=== PATIENT | female | born 1985 | race Hispanic/Latino ===

== ENCOUNTER 2018-05-16 18:51 | Emergency (ER) | payer MEDICAID ==
[2018-05-16] MEDS ORDERED: DIPHENHYDRAMINE HCL 25 MG CAPSULE ONE (19:29)
[2018-05-16] MEDS ORDERED: IPRATROPIUM/ALBUTEROL SULFATE 3 ML SOLUTION IH ONE (19:42)
== END 2018-05-16 20:49 | disposition home or self-care (01) ==
LOC: EDH 18:51
DX: L50.0 Allergic urticaria (principal); J45.901 Unspecified asthma with (acute) exacerbation; F41.9 Anxiety disorder, unspecified; Z90.49 Acquired absence of other specified parts of digestive tract
CPT/HCPCS: 94640; 99283; Q0163

== ENCOUNTER 2018-11-11 19:00 | Emergency (ER) | payer MEDICAID ==
[2018-11-11] MEDS ORDERED: FAMOTIDINE 20MG TAB 20 MG TAB ONE (19:39)
[2018-11-11] MEDS ORDERED: ONDANSETRON ODT 4 MG TAB ONE (19:40)
[2018-11-11 19:44] LABS: APPEARANCE,URINE Clear (CLEAR); BILIRUBIN,URINE Negative (NEGATIVE); COLOR,URINE Dark Yellow (YELLOW); GLUCOSE, URINE (UA) Negative (NEGATIVE); KETONES,URINE Negative (NEGATIVE); LEUKOCYTE ESTERASE ,URINE Small (NEGATIVE); NITRATE,URINE Negative (NEGATIVE); OCCULT BLOOD,URINE Trace (NEGATIVE); PROTEIN,URINE Trace mg/dL (NEGATIVE)
[2018-11-11 19:54] LABS: HCG,QUAL RESULT NEGATIVE (NEGATIVE)
[2018-11-11] MEDS ORDERED: HYOSCYAMINE SULFATE 0.125 MG TAB.SUBL SL ONE (19:58)
[2018-11-11 20:06] LABS: BACTERIA,URINE Few /HPF (None Seen); MUCUS,URINE Few LPF (None Seen)
== END 2018-11-11 20:37 | disposition home or self-care (01) ==
LOC: EDH 19:00
DX: K52.9 Noninfective gastroenteritis and colitis, unspecified (principal); F41.9 Anxiety disorder, unspecified; J45.909 Unspecified asthma, uncomplicated; Z79.899 Other long term (current) drug therapy; Z98.890 Other specified postprocedural states
CPT/HCPCS: 81001; 81025

== ENCOUNTER 2019-03-06 12:30 | Emergency (ER) | payer MEDICAID ==
[2019-03-06 13:31] LABS: BASOPHILS % (AUTO) 1.1 % (0.0-5.0); EOSINOPHILS % (AUTO) 1.4 % (0.0-8.0); HEMATOCRIT 42.7 % (36-48); LYMPHOCYTES % (AUTO) 27.3 % (21.0-51.0); MEAN CORPUSCULAR HEMOGLOBIN 30.6 pg (27.0-33.0); MEAN CORPUSCULAR HGB CONC 34.2 g/dL (32.0-36.0); MEAN CORPUSCULAR VOLUME 89.2 fL (79-99); MONOCYTES % (AUTO) 4.6 % (3.0-13.0); NEUTROPHILS % (AUTO) 65.6 % (40.0-77.0); NUCLEATED RED BLOOD CELLS 0.1 % (0.0-0.19); PLATELET COUNT (AUTO) 286 K/uL (130-400); RED BLOOD CELL COUNT(AUTO) 4.79 MIL/uL (4.00-5.50); WHITE BLOOD COUNT (AUTO) 10.4 K/uL (4.8-10.8)
[2019-03-06 13:47] LABS: CREATININE 0.7 mg/dL (0.5-1.5); POTASSIUM 3.5 mmol/L (3.5-5.1)
[2019-03-06] MEDS ORDERED: MAG HYDROX/AL HYDROX/SIMETH ES 30 ML SUSP UDCUP ONE (14:05)
[2019-03-06] MEDS ORDERED: LIDOCAINE HCL 2% VISCOUS 15 ML UDCUP ONE (14:05)
== END 2019-03-06 14:48 | disposition home or self-care (01) ==
LOC: EDH 12:30
DX: R07.89 Other chest pain (principal); F41.9 Anxiety disorder, unspecified; I10 Essential (primary) hypertension; J45.909 Unspecified asthma, uncomplicated; Z98.890 Other specified postprocedural states
CPT/HCPCS: 36415; 71045; 80048; 81025; 84484; 85025; 93005

== ENCOUNTER 2024-02-17 23:15 | Inpatient (IN) | payer MEDICAID ==
[~2024-02-17] VITALS: Ht 149.9 cm; Wt 105.2 kg
[2024-02-18] VITALS (25 sets, daily range): BP systolic 103–148; BP diastolic 56–81; PULSE 78–106; RESP 12–21; TEMP 97.2–98.6; O2SAT 97
--- NOTE | 2024-02-18 00:55 | ERN ---
ED Note History of Present Illness Stated Complaint: C/O ABSCESS UNDER RT BREAST Chief Complaint: Abscess Time Seen by MD: 23:18 Time Seen by Midlevel: 23:18 Dictation: The patient is a 38-year-old year old female with a history of chronic bronchitis, asthma, cholecystectomy who presents to the emergency department with complaints of abscess to right lower breast. Patient reports she has a history of abscess to that area. Reports this episode started on Saturday. Denies fevers or chills. Patient reports she has been suffering from chronic bronchitis and is taking Levaquin she got from [place], prednisone. Allergies: Coded Allergies: No Known Drug Allergies (Unverified Allergy, Unknown, 11/11/18) Past Medical History Past Medical History: Anxiety, Asthma, Bronchitis Surgical History: None LMP: Feb 17, 2024 RN Note Reviewed/Agreed w/PFSH: Yes Review of System Dictation Constitutional: Negative for fever,chills, and weight loss Eyes: Negative for injury, pain,redness, and discharge ENT: Negative for injury,pain or swelling Cardiovascular: Negative for chest pain, palpitations, and edema Respiratory: Negative for shortness of breath, cough, and wheezing, Abdomen/GI: Negative for abdominal pain, nausea, vomiting, diarrhea, and constipation Back: Negative for injury and pain : Negative for injury, bleeding and discharge MS/Extremity: Negative for injury and deformity Skin: Negative for rash, and discoloration positive for erythema, induration of right lower breast Neuro: Negative for headache, weakness, numbness, tingling, and seizure Psych: Negative for suicide ideation, homicidal ideation, and hallucinations Initial Vital Sign VS Vital Signs Date Time Temp Pulse Resp B/P (MAP) Pulse Ox O2 Delivery O2 Flow Rate FiO2 02/17/24 23:17 99.5 108 20 162/114 96 Room Air Physical Exam Dictation Vital Signs reviewed General Appearance: Alert, oriented x 3, no acute distress, well developed, nourished. Head and Face: non-traumatic. Eyes: PERRL, pink conjunctivas, eyelid no trauma, anterior chamber with arcus senilis. Ears: Pinnas intact and no signs of trauma or erythema ear canals clear and no discharge TM no erythema Nose: No discharge, no bleeding. Oropharynx: Mouth normal, tongue pink. pharynx clear,no erythema, tonsils no exudates, no abscesses noted, mucous membrane moist Neck: Supple, non-tender, no thyromegaly, no masses, no JVD, no bruits Breast: Right breast at 5-6 o'clock with induration, erythema, warmth to touch Chest:No tenderness, no crepitus, no paradoxical movement, no retractions Lungs:Clear, well-ventilated, symmetric, no rales, no wheezing, no rhonchi, no stridor, good breath sounds bilaterally Heart: Regular rate, regular rhythm, no murmur, no gallops Vascular: no peripheral edema, Abdomen: Soft, positive bowel sounds, nondistended, no guarding, nontender, no rebound, no masses no hepatomegaly, no splenomegaly, no Milan's sign, no hernias. Rectal: Deferred Genital: Deferred Neurological: Normal speech, motor function intact, sensory function intact Musculoskeletal: Neck nontender, full range of motion, back nontender, full range of motion, Extremities: nontender, full range of motion Skin: Color pink, dry, no turgor, no rash, no lacerations, no abrasions, no contusions. Lymphatic: Deferred Results (Laboratory/Radiology) Laboratory/Radiology Laboratory Tests Test 02/18/24 00:58 White Blood Count 15.4 K/uL (4.8-10.8) H Red Blood Count 4.98 MIL/uL (4.00-5.50) Hemoglobin 14.4 g/dL (12.0-16.0) Hematocrit 43.3 % (36-48) Mean Corpuscular Volume 86.9 fL (79-99) Mean Corpuscular Hemoglobin 28.9 pg (27.0-33.0) Mean Corpuscular Hemoglobin Concent 33.3 g/dL (32.0-36.0) Red Cell Distribution Width 13.5 % (11.0-15.5) Platelet Count 303 K/uL (130-400) Mean Platelet Volume 9.5 fL (7.5-10.5) Immature Granulocyte % (Auto) 0.4 % (0-1) Neutrophils (%) (Auto) 80.9 % (40.0-77.0) H Lymphocytes (%) (Auto) 15.0 % (21.0-51.0) L Monocytes (%) (Auto) 2.5 % (3.0-13.0) L Eosinophils (%) (Auto) 1.0 % (0.0-8.0) Basophils (%) (Auto) 0.2 % (0.0-5.0) Neutrophils # (Auto) 12.5 K/uL (1.8-7.7) H Lymphocytes # (Auto) 2.3 K/uL (1.0-4.8) Monocytes # (Auto) 0.4 K/uL (0.1-1.0) Eosinophils # (Auto) 0.16 K/uL (0.00-0.70) Basophils # (Auto) 0.03 K/uL (0.00-0.20) Absolute Immature Granulocyte (auto 0.06 K/uL (0-1) Nucleated Red Blood Cells 0.0 % (0.0-0.19) Sodium Level 136 mmol/L (136-145) Potassium Level 4.1 mmol/L (3.5-5.1) Chloride Level 99 mmol/L (101-111) L Carbon Dioxide Level 26 mmol/L (21-32) Blood Urea Nitrogen 8 mg/dL (7-18) Creatinine 0.7 mg/dL (0.5-1.0) Glomerular Filtration Rate Calc 112 mL/min (>90) Random Glucose 195 mg/dL (70-105) H Total Calcium 10.1 mg/dL (8.5-10.1) Serum Test, Qualitative NEGATIVE (NEGATIVE) REASON: r/o abscess right breast ORDERING PHYSICIAN: CLYDE SANCHES SENIOR UI WEB DEVELOPER PROCEDURE: BREAST LTD - US BREAST LIMITED UNILATERAL US BREAST LIMITED UNILATERAL REASON: r/o abscess right breast. COMPARISON: None TECHNIQUE: Right breast ultrasound study was performed. FINDINGS: Hypoechoic area with peripheral flow is noted at 5-6 o'clock region of the right breast may be related to abscess measuring 3.7 x 1 x 5.2 cm. Adjacent cellulitis changes are seen. Follow-up examination is recommended to rule out a mass lesion. IMPRESSION: Findings as described above. Labs Reviewed?: Yes ED Course ED Course Orders Procedure Category Date Status Time Cbc With Differential LAB 02/17/24 Complete 23:43 Basic Metabolic Panel LAB 02/17/24 Complete 23:43 Us Breast Limited US 02/17/24 Resulted Unilateral 23:43 Testing, LAB 02/18/24 Complete Serum Hcg 01:41 Blood Cult MAE 02/18/24 Logged 02:19 Lactic Acid LAB 02/18/24 Logged 02:19 0.9%Nacl 1000ml (Ns PHA 02/18/24 In Process 1000ml) 02:30 Zosyn 3.375gm+Ns 50ml PHA 02/18/24 In Process (Zosyn 3.375gm+Ns 02:19 Vancomycin 1g/250ml PHA 02/18/24 In Process Kit (Vancomycin 1g/2 02:30 Current Medications Medications (Trade) Dose Ordered Sig/Peggy Route PRN Reason Start Time Stop Time Status Last Admin Dose Admin Piperacillin Sod/ Tazobactam Sod 50 ml @ 200 mls/hr STAT STAT IVPB 02/18/24 02:19 02/18/24 02:33 Sodium Chloride 3,156 ml @ 1,052 mls/hr ONCE ONCE IV 02/18/24 02:30 02/18/24 05:29 Vancomycin HCl 250 ml @ 125 mls/hr ONCE ONCE IV 02/18/24 02:30 02/18/24 04:29 Vital Signs Date Time Temp Pulse Resp B/P (MAP) Pulse Ox O2 Delivery O2 Flow Rate FiO2 02/17/24 23:17 99.5 108 20 162/114 96 Room Air Medical Decision Making MDM MDM: The patient is a 38-year-old year old female with a history of chronic bronchitis, asthma, cholecystectomy who presents to the emergency department with complaints of abscess to right lower breast. Patient reports she has a history of abscess to that area. Reports this episode started on Saturday. Denies fevers or chills. Patient reports she has been suffering from chronic bronchitis and is taking Levaquin she got from [place], prednisone. CBC showed mild leukocytosis, no anemia, chemistry showed mild hyperglycemia, normal renal function, breast ultrasound revealed a possible abscess, with cellulitis. Patient will be admitted for IV antibiotics and further management. Differential diagnosis: Abscess, cellulitis, sepsis, electrolyte imbalance Comorbidities: Bronchitis, asthma Tests considered and not ordered secondary to shared decision making include: none Previous outside records reviewed: none Risk of complication and/or morbidity or mortality of patient management: The patient meets criteria for admission. Need for emergency major/minor surgery: No There are no social concerns with this patient. I independently interpreted the tests I ordered (labs, urinalysis, etc.). I discussed the case with the hospitalist for admission. [place] who accepts adm ission I discussed the case with the following specialists: none. Historian: [email or web address]. I independently interpreted imaging studies and EKGs that I ordered (US, CT, XR, EKG, etc.). External chart review: none. Medical management and examination interpretation discussions were had by me with other qualified healthcare professionals as indicated for the patient's care. DX & DISP Disposition: Inpatient Decision to Admit Date: Feb 18, 2024 Decision to Admit Time: 02:55 Departure Impression: Primary Impression: Abscess of right breast Additional Impressions: Cellulitis of right breast, Leukocytosis Condition: Stable Referrals: ROSLYN RUSSLEL MD (PCP) I have reviewed the case, and I agree with, Diagnosis and Plan CLYDE SANCHES SENIOR UI WEB DEVELOPER Feb 18, 2024 00:55
[2024-02-18 01:05] LABS: BASOPHILS # (AUTO) 0.03 K/uL (0.00-0.20); BASOPHILS % (AUTO) 0.2 % (0.0-5.0); EOSINOPHILS # (AUTO) 0.16 K/uL (0.00-0.70); HEMATOCRIT 43.3 % (36-48); IMMATURE GRANULOCYTE ABSOLUTE 0.06 K/uL (0-1); LYMPHOCYTES # (AUTO) 2.3 K/uL (1.0-4.8); MEAN CORPUSCULAR HEMOGLOBIN 28.9 pg (27.0-33.0); MEAN CORPUSCULAR HGB CONC 33.3 g/dL (32.0-36.0); MEAN CORPUSCULAR VOLUME 86.9 fL (79-99); MONOCYTES # (AUTO) 0.4 K/uL (0.1-1.0); MONOCYTES % (AUTO) 2.5 % (3.0-13.0); NEUTROPHILS # (AUTO) 12.5 K/uL (1.8-7.7); NEUTROPHILS % (AUTO) 80.9 % (40.0-77.0); PLATELET COUNT (AUTO) 303 K/uL (130-400); RED BLOOD CELL COUNT(AUTO) 4.98 MIL/uL (4.00-5.50); RED CELL DISTRIBUTION WIDTH 13.5 % (11.0-15.5); WHITE BLOOD COUNT (AUTO) 15.4 K/uL (4.8-10.8)
[2024-02-18 01:12] LABS: CREATININE 0.7 mg/dL (0.5-1.0); POTASSIUM 4.1 mmol/L (3.5-5.1)
--- NOTE | 2024-02-18 01:50 | HMCIMG ---
US BREAST LIMITED UNILATERAL REASON: r/o abscess right breast. COMPARISON: None TECHNIQUE: Right breast ultrasound study was performed. FINDINGS: Hypoechoic area with peripheral flow is noted at 5-6 o'clock region of the right breast may be related to abscess measuring 3.7 x 1 x 5.2 cm. Adjacent cellulitis changes are seen. Follow-up examination is recommended to rule out a mass lesion. IMPRESSION: Findings as described above.
[2024-02-18] MEDS ORDERED: ZOSYN 3.375GM+NS 50ML 50 ML IVPB STA (02:19)
[2024-02-18] MEDS ORDERED: VANCOMYCIN 1G/250ML KIT 250 ML IV ONE (02:30)
[2024-02-18] MEDS ORDERED: ondanSETRON 4MG INJ IV PRN (03:00)
[2024-02-18] MEDS ORDERED: MAGNESIUM 2GM PREMIX 50ML 50 ML IV PRN (03:00)
[2024-02-18] MEDS ORDERED: PoTASSium chloRIDE 20MEQ/100ML 100 ML IV PRN (03:00)
[2024-02-18] MEDS ORDERED: PoTASSium chloRIDE 20MEQ ER 20 MEQ ERTAB PO PRN (03:00)
[2024-02-18] MEDS ORDERED: morPHINE 2 MG SYG IV PRN (03:00)
[2024-02-18] MEDS ORDERED: HYDROcodone/APAP 5/325 1 TAB TABLET PO PRN (03:00)
[2024-02-18] MEDS ORDERED: PoTASSium chl 10% ELIXIR 20MEQ 20 MEQ/15 ML UDCUP PO PRN (03:00)
[2024-02-18] MEDS ORDERED: acetaMINOPHEN 325 MG TAB PO PRN (03:00)
[2024-02-18] MEDS ORDERED: VANCOMYCIN PROTOCOL PER PHARMACY IV SCH (03:30)
[2024-02-18] MEDS: [UNRECOGNIZED DRUG - OTHER] IV ONE (03:45)
[2024-02-18] MEDS: ZOSYN 3.375GM+NS 50ML 50 ML IV SCH (03:46)
[2024-02-18] MEDS: ceFEPime HCL 1 GM VIAL IVPB SCH (04:03)
--- NOTE | 2024-02-18 04:23 | NUR ---
CEFEPIME STOPPED, PATIENT COMPLAINS OF ITCHING AND HIVES
[2024-02-18] MEDS: DiphenhydrAMINE HCL 50 MG/ML VIAL IV ONE (04:35)
[2024-02-18] MEDS: VANCOMYCIN 1G/250ML KIT 250 ML IV ONE (05:30)
--- NOTE | 2024-02-18 05:30 | NUR ---
REPORT GIVEN TO JOSHUA PATEL
--- NOTE | 2024-02-18 05:51 | HP ---
[facility] HISTORY AND PHYSICAL Date of Service: Feb 18, 2024 Time of Service: 05:19 PCP: SElf Referral HISTORY OF PRESENT ILLNESS: This is a 38 year old female with past medical history of morbid obesity ,Asthma and chronic bronchitis who presents to the eD for complaints of right lower breast tenderness and swelling last Saturday 3 days ago.Patient states that this is the 5th time it happened to her on same site.Patient states the previous 4 episodes of right breast cellulitis she had it popped and was draining and resolved and this is the 5th episode now and so far she said it has not popped and drained yet so she decided to come to the ED to have it drained surgically. Seen and examined patient in the ER awake,alert and coherent appears uncomfortable complaining of right breast pain 8/10 pain level.Patient denies fever ,chills and chest pain. Latest vital signs temperature 99.5, heart rate 108, BP 162/114 saturation 96% on room air. Labs: WBC 15.4 with negative left shift of neutrophils 80.9, hemoglobin 14.4 ,hematocrit 43.3, platelet count 303. Chloride 99, Glucose 195, the rest of the chemistry result is normal. Ultrasound of the right breast was done result is still pending at this time. While in the ER patient was started on cefepime per ER and patient developed rash and itching ,med was stopped and patient was given Benadryl 50 IV x1 vancomycin IV was started in the ER. Patient denies facial swelling respiratory symptoms & tongue swelling . We will admit patient for further medical management. REVIEW OF SYSTEMS CONSTITUTIONAL: Denies fevers, chills, or night sweats. No unintentional weight loss reported. NEUROLOGICAL: Denies headache, amaurosis fugax, motor weakness, sensory deficit, vertigo/spinning sensation, gait abnormalities, or tremors. ENT: No hearing loss, otalgia, otorrhea, rhinitis, rhinorrhea, hoarseness, or sore throat. CARDIOVASCULAR: Denies any exertional angina, dyspnea on exertion, orthopnea, paroxysmal nocturnal dyspnea, palpitations, life-threatening arrhythmias, claudication. PULMONARY: Denies any shortness of breath, cough, phlegm/sputum, hemoptysis, pleuritic chest pain. SLEEP: Denies morning headaches, daytime somnolence or napping. Denies difficulty falling asleep, staying asleep, waking from sleep. Denies knowledge of snoring. GASTROINTESTINAL: Denies any type of dysphagia to either liquids or solids. Denies nausea, vomiting, pyrosis, early satiety, abdominal pain, diarrhea, constipation, or changes in stool consistency or caliber. Denies coffee-ground emesis, hematemesis, hematochezia, or melanotic stools. GENITOURINARY: Denies frequency, urgency, nocturia, hematuria or incontinence (Storage/Irritative symptoms.) Low urinary stream, straining to void, urinary intermittency or hesitancy, splitting of the voiding stream, terminal dribbling. ENDOCRINOLOGIC: Denies polyuria, polydipsia, polyphagia or heat/cold intolerances. HEMATOLOGIC: Denies thrombophilia/previous clots, or coagulopathy/bleeding disorders. ONCOLOGIC: Denies personal history of malignancy. DERMATOLOGIC: Positive rash and itchiness after antibiotic was started PSYCHIATRIC: Denies any suicidal or homicidal ideation. Denies hallucinations. PAST MEDICAL HISTORY: [ Right breast cellulitis x4 episode Asthma, bronchitis and morbid obesity ] PAST SURGICAL HISTORY: [ Cholecystectomy, tonsillectomy, and x2 ] PAST SOCIAL HISTORY: [Patient lives with . Patient denies alcohol tobacco and recreational drug use] FAMILY HISTORY: [ Noncontributory ] Coded Allergies: cefepime (Unverified Allergy, Mild, HIVES, 02/18/24) Penicillins (Unverified Allergy, Unknown, 02/18/24) PHYSICAL EXAM GENERAL APPEARANCE: The patient is awake, alert, and oriented, in no acute cardiopulmonary distress. NEUROLOGICAL: Cranial nerves II-XII grossly intact. Motor is 5/5 in bilateral upper and lower extremities proximal to distal. No sensory deficits. HEENT: Face is symmetric. Pupils are equal and reactive. Extraocular movements are intact. NECK: Supple. No JVD. No thyromegaly. No submental, submandibular, pre- /postauricular, occipital or supraclavicular lymphadenopathy. CHEST: Normal chest expansion. No Telemetry. LUNGS: Absence of any rales, rhonchi or any wheezing. CARDIOVASCULAR: Regular. S1 and S2 normal. No appreciable rubs, murmurs or gallops. ABDOMEN: Soft, nontender, and nondistended. There is no rebound, voluntary guarding, or rigidity. : Deferred. No [place]. EXTREMITIES: Non-edematous and not cyanotic. No clubbing. Good capillary refill. SKIN: Positive induration of the right breast, tenderness positive redness Vital Sign (Last 24 Hours) 02/17/24 23:17 Temp 99.5 Pulse 108 Resp 20 B/P (MAP) 162/114 Pulse Ox 96 O2 Delivery Room Air LABS: Laboratory: Test 02/18/24 00:58 Range/Units White Blood Count 15.4 H 4.8-10.8 K/uL Red Blood Count 4.98 4.00-5.50 MIL/uL Hemoglobin 14.4 12.0-16.0 g/dL Hematocrit 43.3 36-48 % Mean Corpuscular Volume 86.9 79-99 fL Mean Corpuscular Hemoglobin 28.9 27.0-33.0 pg Mean Corpuscular Hemoglobin Concent 33.3 32.0-36.0 g/dL Red Cell Distribution Width 13.5 11.0-15.5 % Platelet Count 303 130-400 K/uL Mean Platelet Volume 9.5 7.5-10.5 fL Immature Granulocyte % (Auto) 0.4 0-1 % Neutrophils (%) (Auto) 80.9 H 40.0-77.0 % Lymphocytes (%) (Auto) 15.0 L 21.0-51.0 % Monocytes (%) (Auto) 2.5 L 3.0-13.0 % Eosinophils (%) (Auto) 1.0 0.0-8.0 % Basophils (%) (Auto) 0.2 0.0-5.0 % Neutrophils # (Auto) 12.5 H 1.8-7.7 K/uL Lymphocytes # (Auto) 2.3 1.0-4.8 K/uL Monocytes # (Auto) 0.4 0.1-1.0 K/uL Eosinophils # (Auto) 0.16 0.00-0.70 K/uL Basophils # (Auto) 0.03 0.00-0.20 K/uL Absolute Immature Granulocyte (auto 0.06 0-1 K/uL Nucleated Red Blood Cells 0.0 0.0-0.19 % Sodium Level 136 136-145 mmol/L Potassium Level 4.1 3.5-5.1 mmol/L Chloride Level 99 L 101-111 mmol/L Carbon Dioxide Level 26 21-32 mmol/L Blood Urea Nitrogen 8 7-18 mg/dL Creatinine 0.7 0.5-1.0 mg/dL Glomerular Filtration Rate Calc 112 >90 mL/min Random Glucose 195 H 70-105 mg/dL Total Calcium 10.1 8.5-10.1 mg/dL Serum Test, Qualitative NEGATIVE NEGATIVE Current Medications Medications (Trade) Dose Ordered Sig/Peggy Route PRN Reason Start Time Stop Time Status Last Admin Dose Admin Acetaminophen (TYLenol 325MG TAB) 650 mg Q4H PRN PO MILD PAIN (1-3) 02/18/24 03:00 03/19/24 02:59 Acetaminophen (TYLenol 325MG TAB) 650 mg Q6H PRN PO TEMPERATURE GREATER THAN 101.5 02/18/24 03:00 03/19/24 02:59 Acetaminophen/ Hydrocodone Bitart (NORco 5/325MG) 1 tab Q4H PRN PO MODERATE PAIN (4-6) 02/18/24 03:00 02/23/24 02:59 Cefepime HCl (MAXipime 1 GM vial) 1 gm ONCE IVPB 02/18/24 04:00 02/28/24 03:59 02/18/24 04:03 1 GM Famotidine (Pepcid 20mg Tab) 20 mg BID PO 02/18/24 09:00 03/19/24 08:59 Magnesium Sulfate 50 ml @ 0 mls/hr PROTOCOL PRN IV OTHER [SEE ORDER COMMENTS] 02/18/24 03:00 03/19/24 02:59 Morphine Sulfate (morPHINE 2MG SYG) 2 mg Q4H PRN IV MODERATE PAIN (7-10) 02/18/24 03:00 02/25/24 02:59 Ondansetron HCl (zoFRAN 4MG INJ) 4 mg Q6H PRN IV NAUSEA/VOMITING 02/18/24 03:00 03/19/24 02:59 Piperacillin Sod/ Tazobactam Sod 50 ml @ 12.5 mls/hr Q8H IV 02/18/24 03:00 02/18/24 04:22 DC Piperacillin Sod/ Tazobactam Sod 50 ml @ 200 mls/hr STAT STAT IVPB 02/18/24 02:19 02/18/24 03:07 DC Potassium Chloride 100 ml @ 100 mls/hr AD PRN IV POTASSIUM PROTOCOL 02/18/24 03:00 03/19/24 02:59 Potassium Chloride (K-Dur/Klor-Con 20meq) 20 meq AD PRN PO POTASSIUM PROTOCOL 02/18/24 03:00 03/19/24 02:59 Potassium Chloride (KCl 10% Elixir 20meq/15ml) 20 meq AD PRN PO POTASSIUM PROTOCOL 02/18/24 03:00 03/19/24 02:59 Vancomycin HCl 250 ml @ 125 mls/hr Q12H IV 02/18/24 15:00 02/28/24 14:59 Vancomycin HCl (Vancomycin Protocol) 1 each AD IV 02/18/24 03:30 03/03/24 03:29 DIAGNOSTICS / RADIOLOGY: [ ] ASSESSMENT: Recurrent right breast cellulitis process POA Sirs were organ dysfunction POA Morbid obesity POA Hyperglycemia POA Allergic reaction POA PLAN: We will admit patient in medical surgical floor We will start with consistent carb diet We will start NS @ 75 ml / hrx1 and re evaluate We will start patient on vancomycin and Levaquin IV for broad-spectrum coverage We will start on Famotidine 20 mg p.o. bid for GI prophylaxis We will replace electrolytes as needed per protocol We will follow-up right breast ultrasound result We will add prn medication for fever,pain,nausea and vomiting We will seek Infectious Disease consultation We will seek general surgeon consultation We will reconcile home meds once medlist available We will request labs in am Further orders to follow depending on above results Case discussed with attending physician and came up with above treatment and plan of care. ADVANCED CARE PLANNING 1. Which of the following were discussed? Hospice Care - No Therapeutic options - Yes Advance Directives - No Other discussions - 2. Discussed with who? Patient 3. Voluntary nature of this service was explained to the patient? Yes 4. Amount of time spent - __19 5. Reviewed by Physician? (if this service was performed by NPP) Yes Patient seen and examined by me. Agree with note by KITCHEN CLERK SEE ADDITIONAL ORDERS PER CHART DISCUSSED WITH NURSING STAFF RASHEED VILLANUEVA CERTIFIED EXECUTIVE CHEF Feb 18, 2024 05:51
[2024-02-18] MEDS: DiphenhydrAMINE HCL 50 MG/ML VIAL ONE (05:53)
[2024-02-18] MEDS: levoFLOXacin 750 MG/D5W 150ML BAG IV SCH (06:00)
--- NOTE | 2024-02-18 06:33 | NUR ---
PATIENT MOVED TO ROOM 18 AT 5.30
[2024-02-18] MEDS: levoFLOXacin 250 MG/D5W 50ML 50 ML ONE (06:48)
[2024-02-18] MEDS: levoFLOXacin 500 MG/D5W 100 ML 100 ML ONE (06:49)
[2024-02-18 07:08] LABS: BASOPHILS # (AUTO) 0.03 K/uL (0.00-0.20); BASOPHILS % (AUTO) 0.2 % (0.0-5.0); EOSINOPHILS # (AUTO) 0.11 K/uL (0.00-0.70); EOSINOPHILS % (AUTO) 0.9 % (0.0-8.0); HEMATOCRIT 40.8 % (36-48); IMMATURE GRANULOCYTE ABSOLUTE 0.05 K/uL (0-1); LYMPHOCYTES # (AUTO) 2.7 K/uL (1.0-4.8); LYMPHOCYTES % (AUTO) 21.7 % (21.0-51.0); MEAN CORPUSCULAR HEMOGLOBIN 29.5 pg (27.0-33.0); MEAN CORPUSCULAR HGB CONC 33.6 g/dL (32.0-36.0); MEAN CORPUSCULAR VOLUME 87.9 fL (79-99); MONOCYTES # (AUTO) 0.4 K/uL (0.1-1.0); MONOCYTES % (AUTO) 3.1 % (3.0-13.0); NEUTROPHILS # (AUTO) 9.2 K/uL (1.8-7.7); NEUTROPHILS % (AUTO) 73.7 % (40.0-77.0); PLATELET COUNT (AUTO) 276 K/uL (130-400); RED BLOOD CELL COUNT(AUTO) 4.64 MIL/uL (4.00-5.50); RED CELL DISTRIBUTION WIDTH 13.4 % (11.0-15.5); WHITE BLOOD COUNT (AUTO) 12.4 K/uL (4.8-10.8)
[2024-02-18 07:18] LABS: HEMOGLOBIN A1C 9.5 % (4.0-6.0)
[2024-02-18 07:19] LABS: INR 1.06 (0.85-1.15); PROTHROMBIN TIME 11.4 SEC (9.6-11.6)
[2024-02-18 07:23] LABS: ALBUMIN 3.3 g/dL (3.5-5.0); BILIRUBIN,TOTAL 0.4 mg/dL (0.2-1.0); CREATININE 0.5 mg/dL (0.5-1.0); MAGNESIUM 1.7 mg/dL (1.80-2.40); POTASSIUM 3.7 mmol/L (3.5-5.1); TOTAL PROTEIN, SERUM 7.7 g/dL (6.0-8.3)
--- NOTE | 2024-02-18 07:39 | NUR ---
NOTE ACUTE PHLEBITIS TO LEFT LOWER ARM. VERBAL ORDER BY DR PHOENIX FOR 60MG SOLUMEDROL IVP. PATIENT STATES HAS RECEIVED LEVAQUIN IN THE PAST PO AND IVPB. DENIES ITHING OR SOB. PER DR PHOENIX TO GIVE NEXT DOSE SLOWER.
[2024-02-18] MEDS: Solu-medROL 40MG VIAL IVP ONE (07:44)
[2024-02-18] MEDS: Solu-medROL 40MG VIAL ONE (07:44)
[2024-02-18 08:22] LABS: ERYTHROCYTE SEDIMENTATION RATE 39 MM/HR (0-20)
--- NOTE | 2024-02-18 08:48 | HMCIMG ---
CT CHEST W/O CONTRAST HISTORY: Abscess COMPARISON: 10/12/2008 TECHNIQUE: Multiple sequential axial images of the chest were obtained from the thoracic inlet through upper abdomen. Patient was not given contrast through intravenous route. FINDINGS: There is no evidence of pulmonary nodule or parenchymal disease. No pleural effusion or pericardial effusion is seen. There is no evidence of pneumothorax. There are normal size mediastinal and hilar lymph nodes. The heart is not enlarged. Degenerative changes of the thoracolumbar spine are present. There is no evidence of adrenal nodule. Liver is enlarged measuring 19 cm with fatty changes. There is focal skin thickening noted at the inferior aspect of the right breast measuring 18.8 mm in thickness. There may be small complex superficial subcutaneous abscess measuring 3.6 x 1.8 cm. IMPRESSION: 1. No evidence of pulmonary nodule or effusion is seen. There is focal skin thickening noted at the inferior aspect of the right breast measuring 18.8 mm in thickness. There may be small complex superficial subcutaneous abscess measuring 3.[address] was performed with one or more following dose reduction techniques: automated exposure control, adjustment of the mA and kv according to patient's size, or use of a iterative reconstruction technique.
[2024-02-18] MEDS: FAMOTIDINE 20MG TAB PO SCH (09:00)
--- NOTE | 2024-02-18 09:27 | NUR ---
ADMITTING -DR BUTLER INFORMED OF ACUTE PHLEBITIS REACTION.AGRESS TO GIVE NEXT DOSE SLOWLY AND MONITOR,.
--- NOTE | 2024-02-18 09:27 | NUR ---
DR SERRANO INFORMED OF CT RESULTS
--- NOTE | 2024-02-18 10:04 | NUR ---
TO OR AT THIS TIME. SCRATCH BRUSHER AWARE. PT LIKELY TO RETURN TO ER,.
[2024-02-18] MEDS ORDERED: rocuRONium bROMide 10MG/1ML 5ML VL ONE (10:22)
[2024-02-18] MEDS ORDERED: proPOFol 10 MG/ML 20ML VIAL IV ONE (10:22)
[2024-02-18] MEDS ORDERED: MIDAZOLAM HCL 1 MG/ML 2ML VIAL ONE (10:22)
[2024-02-18] MEDS ORDERED: FENTanyl CITRate PF 50 MCG/1 ML 2ML VIAL ONE (10:22)
[2024-02-18] MEDS ORDERED: ondanSETRON 4MG INJ ONE (10:22)
[2024-02-18] MEDS: 0.9%NACL 1000ML 1,000 ML IV ONE (10:29)
--- NOTE | 2024-02-18 10:44 | NUR ---
PT TO GO TO ROOM 110 S/P SURGERY. PATIENT REPORT GIVEN TO NURSE WALTON
[2024-02-18] MEDS ORDERED: NEOSTIGMINE METHYLSULFATE 1MG/ML IV ONE (11:18)
[2024-02-18] MEDS ORDERED: GLYCOPYRROLATE 0.2 MG/ML 5 ML VIAL ONE (11:18)
[2024-02-18] MEDS: IpraTROPium/alBUTERol SULFATE 3 ML SOLUTION IH ONE (11:42)
[2024-02-18] MEDS: MEPERIDINE-PF 25 MG/ML SYG ONE ×2 (11:46→11:56)
--- NOTE | 2024-02-18 11:51 | CONS ---
GENERAL SURGERY CONSULTATION NOTE Date/Time Patient Seen: 02/18/2024 10:00 a.m. Requesting Physician: ER Reason for Consultation: Right breast abscess History of Present Illness: This is a 38-year-old female who presents with a history of a recurrent right breast abscess x4. She denies fevers or chills. She has had drainage of the past. She has been seen at [facility] several times for this problem. She has complaints of right breast pain. She has never had a mammogram before. Her hemoglobin A1c is elevated at 9.5 and she has elevated blood sugars. This is concerning for undiagnosed diabetes. Past Medical History: Asthma, anxiety, bronchitis, morbid obesity Past Surgical History: Cholecystectomy and tonsillectomy Family History: Noncontributory Social History: Negative for smoking and illicit drug use Current Medications Medications (Trade) Dose Ordered Sig/Peggy Route Start Time Stop Time Status Last Admin Dose Admin Cefepime HCl (MAXipime 1 GM vial) 1 gm ONCE IVPB 02/18/24 04:00 02/18/24 08:16 DC 02/18/24 04:03 1 GM Famotidine (Pepcid 20mg Tab) 20 mg BID PO 02/18/24 09:00 03/19/24 08:59 Levofloxacin/ Dextrose (LEvaquIN 750 MG/ D5W 150 ML) 750 mg Q24H IV 02/18/24 06:00 02/28/24 05:59 Piperacillin Sod/ Tazobactam Sod 50 ml @ 12.5 mls/hr Q8H IV 02/18/24 03:00 02/18/24 04:22 DC Piperacillin Sod/ Tazobactam Sod 50 ml @ 200 mls/hr STAT STAT IVPB 02/18/24 02:19 02/18/24 03:07 DC Vancomycin HCl 250 ml @ 125 mls/hr Q12H IV 02/18/24 15:00 02/28/24 14:59 Vancomycin HCl (Vancomycin Protocol) 1 each AD IV 02/18/24 03:30 03/03/24 03:29 Review of Systems: CONST: [No fever, fatigue, or weight changes.] EYES: [No recent vision problems.] ENT: [No congestion, ear pain, or sore throat.] C/V: [No chest pain, palpitations, or edema.] RESP: [No cough, congestion, wheezing or shortness of breath.] GI: [No abdominal pain, nausea, vomiting, constipation, or diarrhea.] : [No incontinence or dysuria.] SKIN: Right breast abscess NEURO: [No headache, focal numbness or weakness, dizziness, or seizures.] PSYCH: [History of anxiety.] HEME: [No abnormal bruising or bleeding.] LYMPH: [No swollen glands.] Physical Examination: GENERAL: [No acute distress.] HEAD: [Normal with no signs of head trauma.] EYES: [PERRLA, EOMI, conjunctiva and sclera normal.] ENT: [Hearing grossly intact, normal oropharynx.] NECK: [Supple without JVD. There is no tenderness, lymphadenopathy, or masses. No thyromegaly. Normal carotid upstrokes without bruits.] LUNGS: [Clear breath sounds bilaterally. There are right basilar rales one third of the way up the chest. No wheezes, or rhonchi.] HEART: [Normal rate and rhythm. Normal S1 and S2 without mumurs, gallop or rub.] VASC: [Peripheral pulses +2 bilaterally.] ABD: [Bowel sounds normal, soft, nontender, no masses, no organomegaly. No audible bruits.] : [Not examined] LYMPH: [No lymphadenopathy noted.] EXT: [No clubbing, cyanosis or edema.] SKIN: Right breast with area of erythema that is tender to palpation. An area of fluctuance is palpated. NEURO: [Awake, alert, and oriented x3. No focal sensory or strength deficits noted.] Vital Signs (last 8hr) Date Time Temp Pulse Resp B/P (MAP) Pulse Ox O2 Delivery O2 Flow Rate FiO2 02/18/24 11:42 89 20 02/18/24 10:33 97.5 78 16 135/69 97 Room Air 21 02/18/24 07:41 98.4 110 14 153/102 97 Room Air* 0 21 02/18/24 06:00 98.8 75 18 142/93 98 Room Air* 0 21 Laboratory: [ ] Hematology Labs: Test 02/18/24 06:48 Range/Units White Blood Count 12.4 H 4.8-10.8 K/uL Red Blood Count 4.64 4.00-5.50 MIL/uL Hemoglobin 13.7 12.0-16.0 g/dL Hematocrit 40.8 36-48 % Mean Corpuscular Volume 87.9 79-99 fL Mean Corpuscular Hemoglobin 29.5 27.0-33.0 pg Mean Corpuscular Hemoglobin Concent 33.6 32.0-36.0 g/dL Red Cell Distribution Width 13.4 11.0-15.5 % Platelet Count 276 130-400 K/uL Mean Platelet Volume 9.5 7.5-10.5 fL Immature Granulocyte % (Auto) 0.4 0-1 % Neutrophils (%) (Auto) 73.7 40.0-77.0 % Lymphocytes (%) (Auto) 21.7 21.0-51.0 % Monocytes (%) (Auto) 3.1 3.0-13.0 % Eosinophils (%) (Auto) 0.9 0.0-8.0 % Basophils (%) (Auto) 0.2 0.0-5.0 % Neutrophils # (Auto) 9.2 H 1.8-7.7 K/uL Lymphocytes # (Auto) 2.7 1.0-4.8 K/uL Monocytes # (Auto) 0.4 0.1-1.0 K/uL Eosinophils # (Auto) 0.11 0.00-0.70 K/uL Basophils # (Auto) 0.03 0.00-0.20 K/uL Absolute Immature Granulocyte (auto 0.05 0-1 K/uL Nucleated Red Blood Cells 0.0 0.0-0.19 % Erythrocyte Sedimentation Rate 39 H 0-20 MM/HR Chemistry Labs: Test 02/18/24 06:48 02/18/24 02:56 02/18/24 00:58 Range/Units Sodium Level 139 136-145 mmol/L Potassium Level 3.7 3.5-5.1 mmol/L Chloride Level 103 101-111 mmol/L Carbon Dioxide Level 25 21-32 mmol/L Blood Urea Nitrogen 6 L 7-18 mg/dL Creatinine 0.5 0.5-1.0 mg/dL Glomerular Filtration Rate Calc 122 >90 mL/min Random Glucose 191 H 70-105 mg/dL Lactic Acid Level 2.0 0.8-2.5 mmol/L Total Calcium 9.1 8.5-10.1 mg/dL Magnesium Level 1.70 L 1.80-2.40 mg/dL Total Bilirubin 0.4 0.2-1.0 mg/dL Aspartate Amino Transf (AST/SGOT) 12 10-37 U/L Alanine Aminotransferase (ALT/SGPT) 23 12-78 U/L Alkaline Phosphatase 78 50-136 U/L Total Protein 7.7 6.0-8.3 g/dL Albumin 3.3 L 3.5-5.0 g/dL Hemoglobin A1c 9.5 H 4.0-6.0 % Estimated Average Glucose (eAG) 226 H 70-126 mg/dL Serum Test, Qualitative NEGATIVE NEGATIVE Coagulation Labs: Test 02/18/24 06:48 Range/Units Prothrombin Time 11.4 9.6-11.6 SEC Prothromb Time International Ratio 1.06 0.85-1.15 Activated Partial Thromboplast Time 29.0 26.3-35.5 SEC Diagnostics / Radiology: CT scan of the chest confirms presence of inflammatory changes in abscess in the right breast Assessment: 38-year-old female with of right breast abscess Plan: We will take to OR this morning for an incision and drainage of right breast abscess Agree with antibiotics STEVEN SERRANO MD Feb 18, 2024 11:51
--- NOTE | 2024-02-18 11:54 | OP ---
Operative Note: DATE OF PROCEDURE: 02/18/24 SURGEON: STEVEN SERRANO MD RN [place] [facility] [place]ESTHESIA: General PREOPERATIVE DIAGNOSIS: Right breast abscess POSTOPERATIVE DIAGNOSIS: Right breast abscess Findings: Right breast abscess PROCEDURE: Incision and drainage of right breast abscess ESTIMATED BLOOD LOSS: 30 mL INDICATIONS: 38 Year old female presents with a right breast abscess confirmed on imaging studies. DESCRIPTION OF PROCEDURE: Patient was taken to the operating room placed on the operating table in supine position. Next general anesthesia was induced and the patient was intubated. Her right breast was prepped and draped in a sterile fashion. A time-out was called and the patient's identity, procedure and preoperative antibiotics were confirmed. I made a small incision in the lower inner quadrant of the right breast overlying the area of fluctuance where I thought the abscess was located. I immediately encountered good amount of pus. This was cultured and sent off for cultures and sensitivities. Afterwards I palpated the abscess cavity and broke up any loculations. I irrigated the cavity a large amount of normal saline. I then made seven counter incisions in [place] in the abscess cavity. I threaded vessel loops through these incisions. These vessel loops were tied down. The central opening was packed with iodoform packing tape. Sterile dressings were applied. The anesthesia was reversed. And the patient was taken to the recovery room in stable condition. STEVEN Hernandez MD Feb 18, 2024 11:54
--- NOTE | 2024-02-18 12:25 | NUR ---
received pt from PACU via her bed, report received from Pavithra Hill RN Addendum: 02/18/24 at 1638 by PETER HERNADEZ RN Amended: Links added.
--- NOTE | 2024-02-18 15:02 | NUR ---
pt seen by Dr. Zhao, informed on plan of care, continue with antibiotics and wait for blood culture results, no questions asked by pt. Addendum: 02/18/24 at 1636 by PETER HERNADEZ RN Amended: Links added.
--- NOTE | 2024-02-18 15:35 | NUR ---
pt ambulating in the hallway with steady gait, accompanied by spouse and daughter Addendum: 02/18/24 at 1639 by PETER HERNADEZ RN Amended: Links added.
--- NOTE | 2024-02-18 15:39 | NUR ---
DCP: HOME Pt states she lives with her parents and 2 of her 3 kids. Pt states she lost her Medicaid and re applied at [facility], and is still waiting for determination. CHELE educated on [facility] for status on case, pt wants a personal visit not call. Pt gets food stamp assistance. Pt states she is independent of all her ALDS, uses no DME or in home care services. PCP is Ronni Echols and uses [facility] for rx. DCP is home. Chele notified [facility] that pt is requesting a visit and assistance with Medicaid mahesh. Addendum: 02/18/24 at 1539 by HUY BLOUNT Amended: Links added.
[2024-02-18] MEDS: VANCOMYCIN 1.5 GM/250 ML BAG 250 ML IV SCH (15:42)
--- NOTE | 2024-02-18 15:56 | PN ---
DATE OF SERVICE: 02/18/2024. INFECTIOUS DISEASE FOLLOWUP NOTE SUBJECTIVE: The patient is seen and examined at bedside today. The patient has had no fever, no chills. No nausea or vomiting. No cough, no shortness of breath, no palpitation or orthopnea. The patient underwent surgery today with incisional drainage of the right breast abscess. The patient is tolerating antibiotic. PHYSICAL EXAMINATION: VITAL SIGNS: Temperature 98.7. EYES: No icterus. Pupils equal and reactive. HENT: No oral thrush seen. Moist oral mucosa. NECK: Supple, no JVD or thyromegaly. LUNGS: Good air entry. No rales, no rhonchi. CARDIOVASCULAR: S1, S2 regular. No murmur heard. ABDOMEN: Obese, soft, and nontender. Bowel sounds present. CENTRAL NERVOUS SYSTEM: Awake, alert, and oriented x 3. No focal deficits. SKIN: No rashes, no itchiness. LYMPHATIC: No peripheral lymphadenopathy. BACK: No deformity, no pressure ulcer. ASSESSMENT: A 38-year-old female presenting with right breast pain, swelling and redness. CURRENT PROBLEMS: Include: * Right breast abscess, status post incision and drainage. * Morbid obesity. * Leukocytosis. PLAN: * Continue vancomycin. * Continue wound care. * Continue pain management. * Continue nutritional support. * Monitor electrolytes. * Follow up closely. TID: [id number] RECEIPT: [id number]
--- NOTE | 2024-02-18 16:32 | NUR ---
pt seen by Clare Hill NP, informed on plan of care, no questions asked by pt. Addendum: 02/18/24 at 1640 by PETER HERNADEZ RN Amended: Links added.
[2024-02-19] VITALS (7 sets, daily range): BP systolic 104–142; BP diastolic 68–81; PULSE 84–93; RESP 18–20; TEMP 97.9–98.7; O2SAT 96–98
[2024-02-19] MEDS: acetaMINOPHEN 325 MG TAB PO PRN (03:19)
[2024-02-19 07:27] LABS: MEAN CORPUSCULAR HEMOGLOBIN 29.1 pg (27.0-33.0); MEAN CORPUSCULAR HGB CONC 32.6 g/dL (32.0-36.0); MEAN CORPUSCULAR VOLUME 89.4 fL (79-99); RED BLOOD CELL COUNT(AUTO) 4.36 MIL/uL (4.00-5.50); RED CELL DISTRIBUTION WIDTH 13.5 % (11.0-15.5); WHITE BLOOD COUNT (AUTO) 12.1 K/uL (4.8-10.8)
[2024-02-19] MEDS ORDERED: ALPRAZolam 0.5 MG TABLET PO PRN (07:30)
[2024-02-19] MEDS ORDERED: ketOROlac 15MG/ML VIAL (15MG/ML) IV PRN (07:30)
[2024-02-19 07:31] LABS: CREATININE 0.6 mg/dL (0.5-1.0); POTASSIUM 3.3 mmol/L (3.5-5.1)
--- NOTE | 2024-02-19 08:58 | PN ---
[facility] PROGRESS NOTE Date of Service: Feb 19, 2024 Time of Service: 08:48 SUBJECTIVE: [38-year-old female admitted due to right breast abscess, status post I&D by Dr. Whelan. Cultures pending for ID and sensitivity, preliminary remarkable for Gram-positive cocci and Gram-negative rods. We will continue current IV antibiotics. Infectious Disease board, patient is currently on Levaquin IV. Patient was evaluated in the room 110, patient is very anxious. Stated that she was not able to sleep well last night because people are in and out in the door has been opening and closing. We will add alprazolam 0.5 mg p.o. as needed for anxiety. Patient also was anxious about having the allergic reaction due to cefepime and Rocephin. ] REVIEW OF SYSTEMS CONSTITUTIONAL: Denies fevers, chills, or night sweats. No unintentional weight loss reported. NEUROLOGICAL: Denies headache, amaurosis fugax, motor weakness, sensory deficit, vertigo/spinning sensation, gait abnormalities, or tremors. ENT: No hearing loss, otalgia, otorrhea, rhinitis, rhinorrhea, hoarseness, or sore throat. CARDIOVASCULAR: Denies any exertional angina, dyspnea on exertion, orthopnea, p aroxysmal nocturnal dyspnea, palpitations, life-threatening arrhythmias, claudication. PULMONARY: Denies any shortness of breath, cough, phlegm/sputum, hemoptysis, pleuritic chest pain. SLEEP: Denies morning headaches, daytime somnolence or napping. Denies difficulty falling asleep, staying asleep, waking from sleep. Denies knowledge of snoring. GASTROINTESTINAL: Denies any type of dysphagia to either liquids or solids. Denies nausea, vomiting, pyrosis, early satiety, abdominal pain, diarrhea, constipation, or changes in stool consistency or caliber. Denies coffee-ground emesis, hematemesis, hematochezia, or melanotic stools. GENITOURINARY: Denies frequency, urgency, nocturia, hematuria or incontinence (Storage/Irritative symptoms.) Low urinary stream, straining to void, urinary intermittency or hesitancy, splitting of the voiding stream, terminal dribbling. ENDOCRINOLOGIC: Denies polyuria, polydipsia, polyphagia or heat/cold intolerances. HEMATOLOGIC: Denies thrombophilia/previous clots, or coagulopathy/bleeding disorders. ONCOLOGIC: Denies personal history of malignancy. DERMATOLOGIC: Positive rash and itchiness after antibiotic was started PSYCHIATRIC: Denies any suicidal or homicidal ideation. Denies hallucinations. PHYSICAL EXAM GENERAL APPEARANCE: The patient is awake, alert, and oriented, in no acute cardiopulmonary distress. NEUROLOGICAL: Cranial nerves II-XII grossly intact. Motor is 5/5 in bilateral upper and lower extremities proximal to distal. No sensory deficits. HEENT: Face is symmetric. Pupils are equal and reactive. Extraocular movements are intact. NECK: Supple. No JVD. No thyromegaly. No submental, submandibular, pre- /postauricular, occipital or supraclavicular lymphadenopathy. CHEST: Normal chest expansion. No Telemetry. LUNGS: Absence of any rales, rhonchi or any wheezing. CARDIOVASCULAR: Regular. S1 and S2 normal. No appreciable rubs, murmurs or gallops. ABDOMEN: Soft, nontender, and nondistended. There is no rebound, voluntary guarding, or rigidity. : Deferred. No [place]. EXTREMITIES: Non-edematous and not cyanotic. No clubbing. Good capillary refill. SKIN: Positive induration of the right breast, tenderness positive redness Vital Signs (last 8hr) Date Time Temp Pulse Resp B/P (MAP) Pulse Ox O2 Delivery O2 Flow Rate FiO2 02/19/24 08:00 98.2 85 19 104/68 96 Room Air 0.0 02/19/24 03:34 98.1 93 20 128/78 97 Room Air LABS: Laboratory: Test 02/19/24 06:43 02/18/24 06:48 02/18/24 02:56 02/18/24 00:58 Range/Units White Blood Count 12.1 H 4.8-10.8 K/uL Red Blood Count 4.36 4.00-5.50 MIL/uL Hemoglobin 12.7 12.0-16.0 g/dL Hematocrit 39.0 36-48 % Mean Corpuscular Volume 89.4 79-99 fL Mean Corpuscular Hemoglobin 29.1 27.0-33.0 pg Mean Corpuscular Hemoglobin Concent 32.6 32.0-36.0 g/dL Red Cell Distribution Width 13.5 11.0-15.5 % Platelet Count 275 130-400 K/uL Mean Platelet Volume 9.6 7.5-10.5 fL Nucleated Red Blood Cells 0.0 0.0-0.19 % Sodium Level 138 136-145 mmol/L Potassium Level 3.3 L 3.5-5.1 mmol/L Chloride Level 103 101-111 mmol/L Carbon Dioxide Level 26 21-32 mmol/L Blood Urea Nitrogen 9 7-18 mg/dL Creatinine 0.6 0.5-1.0 mg/dL Glomerular Filtration Rate Calc 116 >90 mL/min Random Glucose 201 H 70-105 mg/dL Total Calcium 8.9 8.5-10.1 mg/dL Immature Granulocyte % (Auto) 0.4 0-1 % Neutrophils (%) (Auto) 73.7 40.0-77.0 % Lymphocytes (%) (Auto) 21.7 21.0-51.0 % Monocytes (%) (Auto) 3.1 3.0-13.0 % Eosinophils (%) (Auto) 0.9 0.0-8.0 % Basophils (%) (Auto) 0.2 0.0-5.0 % Neutrophils # (Auto) 9.2 H 1.8-7.7 K/uL Lymphocytes # (Auto) 2.7 1.0-4.8 K/uL Monocytes # (Auto) 0.4 0.1-1.0 K/uL Eosinophils # (Auto) 0.11 0.00-0.70 K/uL Basophils # (Auto) 0.03 0.00-0.20 K/uL Absolute Immature Granulocyte (auto 0.05 0-1 K/uL Erythrocyte Sedimentation Rate 39 H 0-20 MM/HR Prothrombin Time 11.4 9.6-11.6 SEC Prothromb Time International Ratio 1.06 0.85-1.15 Activated Partial Thromboplast Time 29.0 26.3-35.5 SEC Lactic Acid Level 2.0 0.8-2.5 mmol/L Magnesium Level 1.70 L 1.80-2.40 mg/dL Total Bilirubin 0.4 0.2-1.0 mg/dL Aspartate Amino Transf (AST/SGOT) 12 10-37 U/L Alanine Aminotransferase (ALT/SGPT) 23 12-78 U/L Alkaline Phosphatase 78 50-136 U/L Total Protein 7.7 6.0-8.3 g/dL Albumin 3.3 L 3.5-5.0 g/dL Hemoglobin A1c 9.5 H 4.0-6.0 % Estimated Average Glucose (eAG) 226 H 70-126 mg/dL Serum Test, Qualitative NEGATIVE NEGATIVE Current Medications Medications (Trade) Dose Ordered Sig/Peggy Route PRN Reason Start Time Stop Time Status Last Admin Dose Admin Acetaminophen (TYLenol 325MG TAB) 650 mg Q4H PRN PO MILD PAIN (1-3) 02/18/24 03:00 03/19/24 02:59 Acetaminophen (TYLenol 325MG TAB) 650 mg Q6H PRN PO TEMPERATURE GREATER THAN 101.5 02/18/24 03:00 03/19/24 02:59 02/19/24 03:19 650 MG Acetaminophen/ Hydrocodone Bitart (NORco 5/325MG) 1 tab Q4H PRN PO MODERATE PAIN (4-6) 02/18/24 03:00 02/19/24 07:18 DC Alprazolam (XANax 0.5MG) 0.5 mg TID PRN PO ANXIETY/AGITATION 02/19/24 07:30 03/20/24 07:29 Cefepime HCl (MAXipime 1 GM vial) 1 gm ONCE IVPB 02/18/24 04:00 02/18/24 08:16 DC 02/18/24 04:03 1 GM Diphenhydramine HCl (BENAdryl INJ) 25 mg Q6H PRN IV ITCHING 02/19/24 07:30 03/20/24 07:29 Famotidine (Pepcid 20mg Tab) 20 mg BID PO 02/18/24 09:00 03/19/24 08:59 02/18/24 20:26 20 MG Ketorolac Tromethamine (toRADol) 15 mg Q6H PRN IV MODERATE PAIN (4-6) 02/19/24 07:30 02/24/24 07:29 Levofloxacin/ Dextrose (LEvaquIN 750 MG/ D5W 150 ML) 750 mg Q24H IV 02/18/24 06:00 02/28/24 05:59 02/19/24 05:32 750 MG Magnesium Sulfate 50 ml @ 0 mls/hr PROTOCOL PRN IV OTHER [SEE ORDER COMMENTS] 02/18/24 03:00 03/19/24 02:59 Morphine Sulfate (morPHINE 2MG SYG) 2 mg Q4H PRN IV SEVERE PAIN (7-10) 02/18/24 03:00 02/25/24 02:59 Ondansetron HCl (zoFRAN 4MG INJ) 4 mg Q6H PRN IV NAUSEA/VOMITING 02/18/24 03:00 03/19/24 02:59 Piperacillin Sod/ Tazobactam Sod 50 ml @ 12.5 mls/hr Q8H IV 02/18/24 03:00 02/18/24 04:22 DC Piperacillin Sod/ Tazobactam Sod 50 ml @ 200 mls/hr STAT STAT IVPB 02/18/24 02:19 02/18/24 03:07 DC Potassium Chloride 100 ml @ 100 mls/hr AD PRN IV POTASSIUM PROTOCOL 02/18/24 03:00 03/19/24 02:59 Potassium Chloride (K-Dur/Klor-Con 20meq) 20 meq AD PRN PO POTASSIUM PROTOCOL 02/18/24 03:00 03/19/24 02:59 Potassium Chloride (KCl 10% Elixir 20meq/15ml) 20 meq AD PRN PO POTASSIUM PROTOCOL 02/18/24 03:00 03/19/24 02:59 Vancomycin HCl 250 ml @ 125 mls/hr Q12H IV 02/18/24 15:00 02/28/24 14:59 02/19/24 03:07 125 MLS/HR Vancomycin HCl (Vancomycin Protocol) 1 each AD IV 02/18/24 03:30 03/03/24 03:29 DIAGNOSTICS / RADIOLOGY: [ ] ASSESSMENT: Recurrent right breast cellulitis process POA Sirs were organ dysfunction POA Morbid obesity POA Hyperglycemia POA Allergic reaction POA Anxiety PLAN: We will admit patient in medical surgical floor Continue with consistent carb diet We can discontinue IV fluids Continue with vancomycin and Levaquin IV for broad-spectrum coverage Continue with Famotidine 20 mg p.o. bid for GI prophylaxis We will replace electrolytes as needed per protocol Patient is status post I&D by Dr. Whelan Patient will also start anxiolytic as needed with alprazolam 0.5 mg p.o. b.i.d. Continue prn medication for fever,pain,nausea and vomiting Appreciate Dr. Zhao's recommendation Medications has been reconciled We will request labs in am Further orders to follow depending on above results Case discussed with attending physician and came up with above treatment and plan of care. ATTESTATION BY PHYSICIAN I have seen and examined the patient. I reviewed the documentation, medical decision making, and treatment plan as noted by the mid-level provider above. I agree with the findings and plan of care. EVARISTO BUTLER MD, [facility] Feb 19, 2024 08:58
[2024-02-19] MEDS: PoTASSium chloRIDE 20MEQ ER 20 MEQ ERTAB PO ONE (09:25)
[2024-02-19] MEDS: MAGNESIUM 2GM PREMIX 50ML 50 ML IV STA (09:26)
--- NOTE | 2024-02-19 14:17 | PN ---
INFECTIOUS DISEASE PROGRESS NOTE Date of Service: Feb 19, 2024 SUBJECTIVE: This is a 38-year-old female patient who was admitted for Right breast abscess and today she is status post incision and drainage day #1. No growth reported yet on the wound cultures collected yesterday. No reports of fever, temperature is 97.9. The WBC is slowly trending down and is 12.1 today. Patient continues on vancomycin and levofloxacin IV. We will continue to follow patient. PHYSICAL EXAM EYES: Anicteric. Pupils equal and reactive. HENT: No oral thrush seen, moist Oral mucosa NECK: Supple, no JVD or thyromegaly. LUNGS: Good air entry. No rales, no rhonchi. CARDIOVASCULAR: S1, S2 regular. No murmur heard. ABDOMEN: Soft, non tender, bowel sounds present, no organomegaly CENTRAL NERVOUS SYSTEM: Awake, alert, oriented x 3. SKIN: No rashes, no swelling. Right breast abscess, status post I&D. LYMPHATICS: No peripheral lymphadenopathy MUSCULOSKELETAL: No joint swelling, erythema or tenderness. EXTREMITIES: No cyanosis or clubbing BACK: No deformity, no pressure ulcer. GENITOURINARY: No dysuria or hematuria Vital Sign (Last 12 Hours) 02/19/24 02/19/24 02/19/24 02/19/24 03:34 08:00 08:00 12:00 Temp 98.1 98.2 97.9 Pulse 93 85 84 Resp B/P (MAP) 128/78 104/68 116/80 Pulse Ox 97 96 96 95 O2 Delivery Room Air Room Air* Room Air Room Air O2 Flow Rate 0 0.0 0.0 FiO2 21 Intake & Output (last 24hrs) 02/18/24 02/18/24 02/19/24 15:00 23:00 07:00 Intake Total 100.0 ml 400.0 ml Output Total 300 ml Balance 100.0 ml 100.0 ml LABS: Laboratory: Test 02/19/24 06:43 02/18/24 06:48 02/18/24 02:56 02/18/24 00:58 Range/Units White Blood Count 12.1 H 4.8-10.8 K/uL Red Blood Count 4.36 4.00-5.50 MIL/uL Hemoglobin 12.7 12.0-16.0 g/dL Hematocrit 39.0 36-48 % Mean Corpuscular Volume 89.4 79-99 fL Mean Corpuscular Hemoglobin 29.1 27.0-33.0 pg Mean Corpuscular Hemoglobin Concent 32.6 32.0-36.0 g/dL Red Cell Distribution Width 13.5 11.0-15.5 % Platelet Count 275 130-400 K/uL Mean Platelet Volume 9.6 7.5-10.5 fL Nucleated Red Blood Cells 0.0 0.0-0.19 % Sodium Level 138 136-145 mmol/L Potassium Level 3.3 L 3.5-5.1 mmol/L Chloride Level 103 101-111 mmol/L Carbon Dioxide Level 26 21-32 mmol/L Blood Urea Nitrogen 9 7-18 mg/dL Creatinine 0.6 0.5-1.0 mg/dL Glomerular Filtration Rate Calc 116 >90 mL/min Random Glucose 201 H 70-105 mg/dL Total Calcium 8.9 8.5-10.1 mg/dL Magnesium Level 1.70 L 1.80-2.40 mg/dL Immature Granulocyte % (Auto) 0.4 0-1 % Neutrophils (%) (Auto) 73.7 40.0-77.0 % Lymphocytes (%) (Auto) 21.7 21.0-51.0 % Monocytes (%) (Auto) 3.1 3.0-13.0 % Eosinophils (%) (Auto) 0.9 0.0-8.0 % Basophils (%) (Auto) 0.2 0.0-5.0 % Neutrophils # (Auto) 9.2 H 1.8-7.7 K/uL Lymphocytes # (Auto) 2.7 1.0-4.8 K/uL Monocytes # (Auto) 0.4 0.1-1.0 K/uL Eosinophils # (Auto) 0.11 0.00-0.70 K/uL Basophils # (Auto) 0.03 0.00-0.20 K/uL Absolute Immature Granulocyte (auto 0.05 0-1 K/uL Erythrocyte Sedimentation Rate 39 H 0-20 MM/HR Prothrombin Time 11.4 9.6-11.6 SEC Prothromb Time International Ratio 1.06 0.85-1.15 Activated Partial Thromboplast Time 29.0 26.3-35.5 SEC Lactic Acid Level 2.0 0.8-2.5 mmol/L Total Bilirubin 0.4 0.2-1.0 mg/dL Aspartate Amino Transf (AST/SGOT) 12 10-37 U/L Alanine Aminotransferase (ALT/SGPT) 23 12-78 U/L Alkaline Phosphatase 78 50-136 U/L Total Protein 7.7 6.0-8.3 g/dL Albumin 3.3 L 3.5-5.0 g/dL Hemoglobin A1c 9.5 H 4.0-6.0 % Estimated Average Glucose (eAG) 226 H 70-126 mg/dL Serum Test, Qualitative NEGATIVE NEGATIVE ASSESSMENT: Right breast abscess, status post incision and drainage on 02/18/2024. Leukocytosis resolving. Morbid obesity. PLAN: Continue vancomycin. We will follow up on the final culture results. Continue pain management. Continue wound care as recommended by General surgery. This case was reviewed and discussed with my supervising physician and the above assessment and plan was formulated and agreed upon. ATTESTATION BY PHYSICIAN I have seen and examined the patient. I reviewed the documentation, medical decision making, and treatment plan as noted by the mid-level provider above. I agree with the findings and plan of care. YANETH HOOKER MD, [facility] Feb 19, 2024 14:17
[2024-02-19] MEDS: VANCOMYCIN 1.75 GM/250 ML BAG 250 ML IV SCH (15:54)
[2024-02-19] MEDS: DiphenhydrAMINE HCL 50 MG/ML VIAL IV PRN (20:11)
[2024-02-20] MEDS ORDERED: COMPOUND IV REFRIGERATED 1 EACH MISC ONE (03:25)
[2024-02-20 03:50] VITALS: BP 136/86; PULSE 80; RESP 18; TEMP 98.4
[2024-02-20 07:02] VITALS: BP 126/82; PULSE 71; RESP 18; TEMP 98.1
[2024-02-20 07:02] LABS: HEMATOCRIT 37.6 % (36-48); MEAN CORPUSCULAR HEMOGLOBIN 29.2 pg (27.0-33.0); MEAN CORPUSCULAR HGB CONC 32.7 g/dL (32.0-36.0); MEAN CORPUSCULAR VOLUME 89.3 fL (79-99); RED BLOOD CELL COUNT(AUTO) 4.21 MIL/uL (4.00-5.50); RED CELL DISTRIBUTION WIDTH 13.5 % (11.0-15.5); WHITE BLOOD COUNT (AUTO) 7.9 K/uL (4.8-10.8)
[2024-02-20 07:09] LABS: CREATININE 0.6 mg/dL (0.5-1.0); POTASSIUM 3.9 mmol/L (3.5-5.1)
[2024-02-20] MEDS: levoFLOXacin 750 MG/D5W 150ML BAG IV SCH (09:00)
--- NOTE | 2024-02-20 09:19 | PN ---
[facility] PROGRESS NOTE Date of Service: Feb 20, 2024 Time of Service: 09:16 SUBJECTIVE: [38-year-old female admitted due to right breast abscess, status post I&D by Dr. Whelan. Cultures pending for ID and sensitivity, preliminary remarkable for Gram-positive cocci and Gram-negative rods. We will continue current IV antibiotics. Infectious Disease board, patient is currently on Levaquin IV vancomycin. Cultures from the breast is still pending. Patient is afebrile, WBC within normal limits today. We will continue to follow and await for final cultures to narrow down antibiotics. REVIEW OF SYSTEMS CONSTITUTIONAL: Denies fevers, chills, or night sweats. No unintentional weight loss reported. NEUROLOGICAL: Denies headache, amaurosis fugax, motor weakness, sensory deficit, vertigo/spinning sensation, gait abnormalities, or tremors. ENT: No hearing loss, otalgia, otorrhea, rhinitis, rhinorrhea, hoarseness, or sore throat. CARDIOVASCULAR: Denies any exertional angina, dyspnea on exertion, orthopnea, paroxysmal nocturnal dyspnea, palpitations, life-threatening arrhythmias, claudication. PULMONARY: Denies any shortness of breath, cough, phlegm/sputum, hemoptysis, pleuritic chest pain. SLEEP: Denies morning headaches, daytime somnolence or napping. Denies difficulty falling asleep, staying asleep, waking from sleep. Denies knowledge of snoring. GASTROINTESTINAL: Denies any type of dysphagia to either liquids or solids. Denies nausea, vomiting, pyrosis, early satiety, abdominal pain, diarrhea, constipation, or changes in stool consistency or caliber. Denies coffee-ground e mesis, hematemesis, hematochezia, or melanotic stools. GENITOURINARY: Denies frequency, urgency, nocturia, hematuria or incontinence (Storage/Irritative symptoms.) Low urinary stream, straining to void, urinary intermittency or hesitancy, splitting of the voiding stream, terminal dribbling. ENDOCRINOLOGIC: Denies polyuria, polydipsia, polyphagia or heat/cold intolerances. HEMATOLOGIC: Denies thrombophilia/previous clots, or coagulopathy/bleeding disorders. ONCOLOGIC: Denies personal history of malignancy. DERMATOLOGIC: Positive rash and itchiness after antibiotic was started PSYCHIATRIC: Denies any suicidal or homicidal ideation. Denies hallucinations. PHYSICAL EXAM GENERAL APPEARANCE: The patient is awake, alert, and oriented, in no acute cardiopulmonary distress. NEUROLOGICAL: Cranial nerves II-XII grossly intact. Motor is 5/5 in bilateral upper and lower extremities proximal to distal. No sensory deficits. HEENT: Face is symmetric. Pupils are equal and reactive. Extraocular movements are intact. NECK: Supple. No JVD. No thyromegaly. No submental, submandibular, pre-/po stauricular, occipital or supraclavicular lymphadenopathy. CHEST: Normal chest expansion. No Telemetry. LUNGS: Absence of any rales, rhonchi or any wheezing. CARDIOVASCULAR: Regular. S1 and S2 normal. No appreciable rubs, murmurs or gallops. ABDOMEN: Soft, nontender, and nondistended. There is no rebound, voluntary guarding, or rigidity. : Deferred. No Treadwell. EXTREMITIES: Non-edematous and not cyanotic. No clubbing. Good capillary refill. SKIN: Positive induration of the right breast, tenderness positive redness Vital Signs (last 8hr) Date Time Temp Pulse Resp B/P (MAP) Pulse Ox O2 Delivery O2 Flow Rate FiO2 02/20/24 07:02 98.1 71 18 126/82 98 Room Air 02/20/24 03:50 98.4 80 18 136/86 98 Room Air LABS: Laboratory: Test 02/20/24 06:48 02/19/24 14:35 02/19/24 06:43 Range/Units White Blood Count 7.9 4.8-10.8 K/uL Red Blood Count 4.21 4.00-5.50 MIL/uL Hemoglobin 12.3 12.0-16.0 g/dL Hematocrit 37.6 36-48 % Mean Corpuscular Volume 89.3 79-99 fL Mean Corpuscular Hemoglobin 29.2 27.0-33.0 pg Mean Corpuscular Hemoglobin Concent 32.7 32.0-36.0 g/dL Red Cell Distribution Width 13.5 11.0-15.5 % Platelet Count 244 130-400 K/uL Mean Platelet Volume 9.5 7.5-10.5 fL Nucleated Red Blood Cells 0.0 0.0-0.19 % Sodium Level 142 136-145 mmol/L Potassium Level 3.9 3.5-5.1 mmol/L Chloride Level 107 101-111 mmol/L Carbon Dioxide Level 27 21-32 mmol/L Blood Urea Nitrogen 7 7-18 mg/dL Creatinine 0.6 0.5-1.0 mg/dL Glomerular Filtration Rate Calc 116 >90 mL/min Random Glucose 186 H 70-105 mg/dL Total Calcium 8.7 8.5-10.1 mg/dL Vancomycin Level Trough 6.6 L 10.0-20.0 UG/ML Magnesium Level 1.70 L 1.80-2.40 mg/dL Current Medications Medications (Trade) Dose Ordered Sig/Peggy Route PRN Reason Start Time Stop Time Status Last Admin Dose Admin Acetaminophen (TYLenol 325MG TAB) 650 mg Q4H PRN PO MILD PAIN (1-3) 02/18/24 03:00 03/19/24 02:59 Acetaminophen (TYLenol 325MG TAB) 650 mg Q6H PRN PO TEMPERATURE GREATER THAN 101.5 02/18/24 03:00 03/19/24 02:59 02/19/24 20:11 650 MG Acetaminophen/ Hydrocodone Bitart (NORco 5/325MG) 1 tab Q4H PRN PO MODERATE PAIN (4-6) 02/18/24 03:00 02/19/24 07:18 DC Alprazolam (XANax 0.5MG) 0.5 mg TID PRN PO ANXIETY/AGITATION 02/19/24 07:30 03/20/24 07:29 Cefepime HCl (MAXipime 1 GM vial) 1 gm ONCE IVPB 02/18/24 04:00 02/18/24 08:16 DC 02/18/24 04:03 1 GM Diphenhydramine HCl (BENAdryl INJ) 25 mg Q6H PRN IV ITCHING 02/19/24 07:30 03/20/24 07:29 02/19/24 20:11 25 MG Famotidine (Pepcid 20mg Tab) 20 mg BID PO 02/18/24 09:00 03/19/24 08:59 02/20/24 08:42 20 MG Ketorolac Tromethamine (toRADol) 15 mg Q6H PRN IV MODERATE PAIN (4-6) 02/19/24 07:30 02/24/24 07:29 Levofloxacin/ Dextrose (LEvaquIN 750 MG/ D5W 150 ML) 750 mg Q24H IV 02/18/24 06:00 02/28/24 05:59 02/20/24 05:35 750 MG Levofloxacin/ Dextrose (LEvaquIN 750 MG/ D5W 150 ML) 750 mg Q24H IV 02/20/24 09:00 03/01/24 08:59 Magnesium Sulfate 50 ml @ 0 mls/hr PROTOCOL PRN IV OTHER [SEE ORDER COMMENTS] 02/18/24 03:00 03/19/24 02:59 Magnesium Sulfate 50 ml @ 0 mls/hr PROTOCOL STAT IV 02/19/24 08:45 02/19/24 08:48 DC 02/19/24 09:26 0 MLS/HR Morphine Sulfate (morPHINE 2MG SYG) 2 mg Q4H PRN IV SEVERE PAIN (7-10) 02/18/24 03:00 02/25/24 02:59 Ondansetron HCl (zoFRAN 4MG INJ) 4 mg Q6H PRN IV NAUSEA/VOMITING 02/18/24 03:00 03/19/24 02:59 Piperacillin Sod/ Tazobactam Sod 50 ml @ 12.5 mls/hr Q8H IV 02/18/24 03:00 02/18/24 04:22 DC Piperacillin Sod/ Tazobactam Sod 50 ml @ 200 mls/hr STAT STAT IVPB 02/18/24 02:19 02/18/24 03:07 DC Potassium Chloride 100 ml @ 100 mls/hr AD PRN IV POTASSIUM PROTOCOL 02/18/24 03:00 03/19/24 02:59 Potassium Chloride (K-Dur/Klor-Con 20meq) 20 meq AD PRN PO POTASSIUM PROTOCOL 02/18/24 03:00 03/19/24 02:59 Potassium Chloride (KCl 10% Elixir 20meq/15ml) 20 meq AD PRN PO POTASSIUM PROTOCOL 02/18/24 03:00 03/19/24 02:59 Vancomycin HCl 250 ml @ 125 mls/hr Q12H IV 02/18/24 15:00 02/19/24 15:10 DC 02/19/24 03:07 125 MLS/HR Vancomycin HCl 250 ml @ 125 mls/hr Q12H IV 02/19/24 15:30 02/29/24 15:29 02/20/24 03:26 125 MLS/HR Vancomycin HCl (Vancomycin Protocol) 1 each AD IV 02/18/24 03:30 03/03/24 03:29 DIAGNOSTICS / RADIOLOGY: [ ] ASSESSMENT: Recurrent right breast cellulitis process POA Sirs were organ dysfunction POA Morbid obesity POA Hyperglycemia POA Allergic reaction POA Anxiety PLAN: Continue medical surgical floor Continue with consistent carb diet We can discontinue IV fluids Continue with Famotidine 20 mg p.o. bid for GI prophylaxis We will replace electrolytes as needed per protocol Patient is status post I&D by Dr. Whelan postop day two Continue with anxiolytic as needed with alprazolam 0.5 mg p.o. b.i.d. Continue prn medication for fever,pain,nausea and vomiting Appreciate Dr. Zhao's recommendation continue with current IV antibiotics. Continue with vancomycin and Levaquin IV for broad-spectrum coverage We will await for final cultures Medications has been reconciled We will request labs in am Further orders to follow depending on above results Case discussed with attending physician and came up with above treatment and plan of care. ATTESTATION BY PHYSICIAN I have seen and examined the patient. I reviewed the documentation, medical decision making, and treatment plan as noted by the mid-level provider above. I agree with the findings and plan of care. EVARISTO BUTLER MD, [facility] Feb 20, 2024 09:19
[2024-02-20 11:00] VITALS: BP 131/89; PULSE 86; RESP 20; TEMP 97.4
--- NOTE | 2024-02-20 11:26 | PN ---
INFECTIOUS DISEASE PROGRESS NOTE Date of Service: Feb 20, 2024 SUBJECTIVE: This is a 38-year-old female patient who was admitted for right breast abscess and she is status post incision and drainage on 02/18/2024. The wound cultures growing Gram-positive cocci in chains. Continues on Vancomycin and levofloxacin 750 mg IV Q 24. No fever, temperature is 98.1 and the WBC has trended down to 7.9. We will continue to follow patient. PHYSICAL EXAM EYES: Anicteric. Pupils equal and reactive. HENT: No oral thrush seen, moist Oral mucosa NECK: Supple, no JVD or thyromegaly. LUNGS: Good air entry. No rales, no rhonchi. CARDIOVASCULAR: S1, S2 regular. No murmur heard. ABDOMEN: Soft, non tender, bowel sounds present, no organomegaly CENTRAL NERVOUS SYSTEM: Awake, alert, oriented x 3. SKIN: No rashes, no swelling. Right breast abscess, status post I&D. LYMPHATICS: No peripheral lymphadenopathy MUSCULOSKELETAL: No joint swelling, erythema or tenderness. EXTREMITIES: No cyanosis or clubbing. BACK: No deformity, no pressure ulcer. GENITOURINARY: No dysuria or hematuria Vital Sign (Last 12 Hours) 02/20/24 02/20/24 03:50 07:02 Temp 98.4 98.1 Pulse 80 71 Resp 18 18 B/P (MAP) 136/86 126/82 Pulse Ox 98 98 O2 Delivery Room Air Room Air Intake & Output (last 24hrs) 02/19/24 02/19/24 02/20/24 15:00 23:00 07:00 Intake Total 715.0 ml 270.0 ml Output Total 300 ml Balance 715.0 ml -30.0 ml LABS: Laboratory: Test 02/20/24 06:48 02/19/24 14:35 02/19/24 06:43 Range/Units White Blood Count 7.9 4.8-10.8 K/uL Red Blood Count 4.21 4.00-5.50 MIL/uL Hemoglobin 12.3 12.0-16.0 g/dL Hematocrit 37.6 36-48 % Mean Corpuscular Volume 89.3 79-99 fL Mean Corpuscular Hemoglobin 29.2 27.0-33.0 pg Mean Corpuscular Hemoglobin Concent 32.7 32.0-36.0 g/dL Red Cell Distribution Width 13.5 11.0-15.5 % Platelet Count 244 130-400 K/uL Mean Platelet Volume 9.5 7.5-10.5 fL Nucleated Red Blood Cells 0.0 0.0-0.19 % Sodium Level 142 136-145 mmol/L Potassium Level 3.9 3.5-5.1 mmol/L Chloride Level 107 101-111 mmol/L Carbon Dioxide Level 27 21-32 mmol/L Blood Urea Nitrogen 7 7-18 mg/dL Creatinine 0.6 0.5-1.0 mg/dL Glomerular Filtration Rate Calc 116 >90 mL/min Random Glucose 186 H 70-105 mg/dL Total Calcium 8.7 8.5-10.1 mg/dL Vancomycin Level Trough 6.6 L 10.0-20.0 UG/ML Magnesium Level 1.70 L 1.80-2.40 mg/dL ASSESSMENT: Right breast abscess, status post incision and drainage on 02/18/2024. Leukocytosis resolving. Morbid obesity. PLAN: Continue vancomycin per pharmacy protocol. Continue levofloxacin IV. Continue GI prophylaxis. We will follow up on the final wound culture results. Continue pain management. Continue wound care as recommended by General surgery. This case was reviewed and discussed with my supervising physician and the above assessment and plan was formulated and agreed upon. ATTESTATION BY PHYSICIAN I have seen and examined the patient. I reviewed the documentation, medical dec ision making, and treatment plan as noted by the mid-level provider above. I agree with the findings and plan of care. YANETH HOOKER MD, [facility] Feb 20, 2024 11:26
--- NOTE | 2024-02-20 12:45 | NUR ---
CM NOTE CM spoke to patient regarding dressing changes and follow up. CM explained that per financial counselors, patient does not have benefits for home health. CM explained that soumya visits at [facility] can be arranged. Patient insisting that she has full medicaid benefits. CM explained that if any changes in the medicaid, attempt can be made for home health. CM did discuss alternate plan would be to return home and have family member assist with dressing changes after nursing has provided teaching. Verbalized understanding and states boyfriend is willing to assist. CM explained that [facility] visits can also be arranged to monitor wound. Patient states wound vac was offered. Explained that soumya application can be completed if ordered. Patient verbalized understanding. CM obtained [facility] for any in [facility] home health, [facility] wound vac, [facility]. CM then discussed plan with Maico GLASER. States he will clarify wound care for discharge when rounding. CM to f/u.
[2024-02-20] MEDS ORDERED: COMPOUND IV REFRIGERATED 1 EACH IVSOLN MISC PRN (15:00)
[2024-02-20 15:45] VITALS: BP 133/83; PULSE 86; RESP 18; TEMP 97.6
--- NOTE | 2024-02-20 16:15 | NUR ---
ALFREDITO PALOMO AT BEDSIDE TO DISCUSS PLAN OF CARE, DRESSING AND PACKING REMOVED BY ALFREDITO PALOMO. PATIENT OFFERED PAIN MEDICATION AT TIME OF REMOVAL, PATIENT REFUSED.
[2024-02-20] MEDS: ketOROlac 30MG VIAL (30MG/ML) IVP PRN (16:56)
--- NOTE | 2024-02-20 17:02 | PN ---
This is a 38-year-old female postop to for incision drainage of right breast abscess Interval history: This 38-year-old female seen in her room resting Packing removed from right breast cavity with vessel loops in place No significant purulent drainage noted Patient's pain controlled No acute events reported overnight Physical exam General: Awake alert and oriented Heart: Regular rate and rhythm} Lungs: Clear to auscultation no distress Abdomen: [Soft, nontender, nondistended Right breast with vessel loops in place Assessment : This is a 38-year-old female status post I and D to right breast Plan: Nursing to pack with iodoform Continue with IV fluids and IV antibiotics Vessel loops to be left alone Potential arrangements for home health packing and wound care to be set up Dr. Whelan to be updated on patient's status and surgical team to follow patient closely Vitals/Labs Vital Signs Date Time Temp Pulse Resp B/P (MAP) Pulse Ox O2 Delivery O2 Flow Rate FiO2 02/20/24 15:45 97.5 86 18 133/83 96 Room Air 02/20/24 07:20 0 21 Laboratory Tests 02/20/24 06:48 Medications Current Medications Sodium Chloride 3,156 ml @ 1,052 mls/hr ONCE ONCE IV Last administered on 02/18/24at 03:45; Start 02/18/24 at 02:30; Stop 02/18/24 at 08:16; Status DC Piperacillin Sod/ Tazobactam Sod 50 ml @ 200 mls/hr STAT STAT IVPB; Start 02/18/24 at 02:19; Stop 02/18/24 at 03:07; Status DC Vancomycin HCl 250 ml @ 125 mls/hr ONCE ONCE IV; Start 02/18/24 at 02:30; Stop 02/18/24 at 03:07; Status DC Acetaminophen 650 mg Q6H PRN PO Last administered on 02/19/24at 20:11; Start 02/18/24 at 03:00; Stop 03/19/24 at 02:59 Acetaminophen 650 mg Q4H PRN PO; Start 02/18/24 at 03:00; Stop 03/19/24 at 02:59 Ondansetron HCl 4 mg Q6H PRN IV; Start 02/18/24 at 03:00; Stop 03/19/24 at 02:59 Famotidine 20 mg BID PO Last administered on 02/20/24at 08:42; Start 02/18/24 at 09:00; Stop 03/19/24 at 08:59 Vancomycin HCl 250 ml @ 125 mls/hr ONCE ONCE IV Last administered on 02/18/24at 05:30; Start 02/18/24 at 03:30; Stop 02/18/24 at 08:16; Status DC Piperacillin Sod/ Tazobactam Sod 50 ml @ 12.5 mls/hr Q8H IV; Start 02/18/24 at 03:00; Stop 02/18/24 at 04:22; Status DC Morphine Sulfate 2 mg Q4H PRN IV; Start 02/18/24 at 03:00; Stop 02/20/24 at 16:40; Status DC Acetaminophen/ Hydrocodone Bitart 1 tab Q4H PRN PO; Start 02/18/24 at 03:00; Stop 02/19/24 at 07:18; Status DC Magnesium Sulfate 50 ml @ 0 mls/hr PROTOCOL PRN IV; Start 02/18/24 at 03:00; Stop 03/19/24 at 02:59 Potassium Chloride 100 ml @ 100 mls/hr AD PRN IV; Start 02/18/24 at 03:00; Stop 03/19/24 at 02:59 Potassium Chloride 20 meq AD PRN PO; Start 02/18/24 at 03:00; Stop 03/19/24 at 02:59 Potassium Chloride 20 meq AD PRN PO; Start 02/18/24 at 03:00; Stop 03/19/24 at 02:59 Vancomycin HCl 1 each AD IV; Start 02/18/24 at 03:30; Stop 03/03/24 at 03:29 Vancomycin HCl 250 ml @ 125 mls/hr Q12H IV Last administered on 02/19/24at 03:07; Start 02/18/24 at 15:00; Stop 02/19/24 at 15:10; Status DC Cefepime HCl 1 gm ONCE IVPB Last administered on 02/18/24at 04:03; Start 02/18/24 at 04:00; Stop 02/18/24 at 08:16; Status DC Diphenhydramine HCl 50 mg ONCE ONCE IV Last administered on 02/18/24at 04:35; Start 02/18/24 at 04:30; Stop 02/18/24 at 08:16; Status DC Diphenhydramine HCl 50 mg STK-MED ONCE .ROUTE; Start 02/18/24 at 04:28; Stop 02/18/24 at 04:28; Status DC Levofloxacin/ Dextrose 750 mg Q24H IV Last administered on 02/20/24at 05:35; Start 02/18/24 at 06:00; Stop 02/20/24 at 13:13; Status DC Levofloxacin/ Dextrose 100 ml @ As Directed STK-MED ONCE .ROUTE Last administered on 02/18/24at 06:49; Start 02/18/24 at 06:38; Stop 02/18/24 at 06:38; Status DC Levofloxacin/ Dextrose 50 ml @ As Directed STK-MED ONCE .ROUTE Last administered on 02/18/24at 06:48; Start 02/18/24 at 06:38; Stop 02/18/24 at 06:38; Status DC Methylprednisolone Sodium Succinate 40 mg STK-MED ONCE .ROUTE; Start 02/18/24 at 07:21; Stop 02/18/24 at 07:21; Status DC Methylprednisolone Sodium Succinate 60 mg ONCE ONCE IVP Last administered on 02/18/24at 07:44; Start 02/18/24 at 08:00; Stop 02/18/24 at 08:17; Status DC Sodium Chloride 1,000 ml @ As Directed STK-MED ONCE IV Last administered on 02/18/24at 10:29; Start 02/18/24 at 10:20; Stop 02/18/24 at 10:20; Status DC Propofol 200 mg STK-MED ONCE IV; Start 02/18/24 at 10:22; Stop 02/18/24 at 10:22; Status DC Ondansetron HCl 4 mg STK-MED ONCE .ROUTE; Start 02/18/24 at 10:22; Stop 02/18/24 at 10:22; Status DC Rocuronium [place] 50 mg STK-MED ONCE .ROUTE; Start 02/18/24 at 10:22; Stop 02/18/24 at 10:22; Status DC Fentanyl Citrate 100 mcg STK-MED ONCE .ROUTE; Start 02/18/24 at 10:22; Stop 02/18/24 at 10:23; Status DC Midazolam HCl 2 mg STK-MED ONCE .ROUTE; Start 02/18/24 at 10:22; Stop 02/18/24 at 10:23; Status DC Glycopyrrolate 1 mg STK-MED ONCE .ROUTE; Start 02/18/24 at 11:18; Stop 02/18/24 at 11:18; Status DC Neostigmine Methylsulfate 10 mg STK-MED ONCE IV; Start 02/18/24 at 11:18; Stop 02/18/24 at 11:18; Status DC Albuterol 1 UDVIAL ONCE ONCE IH Last administered on 02/18/24at 11:42; Start 02/18/24 at 12:00; Stop 02/18/24 at 12:01; Status DC Meperidine HCl 25 mg STK-MED ONCE .ROUTE Last administered on 02/18/24at 11:46; Start 02/18/24 at 11:43; Stop 02/18/24 at 11:43; Status DC Meperidine HCl 25 mg STK-MED ONCE .ROUTE Last administered on 02/18/24at 11:56; Start 02/18/24 at 11:52; Stop 02/18/24 at 11:52; Status DC Alprazolam 0.5 mg TID PRN PO; Start 02/19/24 at 07:30; Stop 03/20/24 at 07:29 Diphenhydramine HCl 25 mg Q6H PRN IV Last administered on 02/19/24at 20:11; Start 02/19/24 at 07:30; Stop 03/20/24 at 07:29 Ketorolac Tromethamine 15 mg Q6H PRN IV; Start 02/19/24 at 07:30; Stop 02/20/24 at 16:40; Status DC Magnesium Sulfate 50 ml @ 0 mls/hr PROTOCOL STAT IV Last administered on 02/19/24at 09:26; Start 02/19/24 at 08:45; Stop 02/19/24 at 08:48; Status DC Potassium Chloride 40 meq ONCE ONCE PO Last administered on 02/19/24at 09:25; Start 02/19/24 at 09:00; Stop 02/19/24 at 09:01; Status DC Vancomycin HCl 250 ml @ 125 mls/hr Q12H IV Last administered on 02/20/24at 16:09; Start 02/19/24 at 15:30; Stop 02/29/24 at 15:29 Levofloxacin/ Dextrose 750 mg Q24H IV; Start 02/20/24 at 09:00; Stop 03/01/24 at 08:59 Ketorolac Tromethamine 30 mg Q6H PRN IVP Last administered on 02/20/24at 16:56; Start 02/20/24 at 16:45; Stop 02/25/24 at 16:44 KHLOE WOLFF Jr. Feb 20, 2024 17:02
--- NOTE | 2024-02-20 17:50 | NUR ---
DARWIN BRADLEY RN, AT PATIENT BEDSIDE TO PACK INCISION PER ALFREDITO PALOMO. PT INSTRUCTED ON PACKING OF INCISION.
--- NOTE | 2024-02-20 19:04 | NUR ---
REPORT GIVEN TO IGNCAIO DUNHAM RN.
[2024-02-20 19:30] VITALS: BP 144/86; PULSE 92; RESP 20; TEMP 97.7; O2SAT 98
[2024-02-20 23:20] VITALS: BP 124/83; PULSE 80; RESP 20; TEMP 97.1
[2024-02-21 03:40] VITALS: BP 140/91; PULSE 90; RESP 20; TEMP 97.4
[2024-02-21 06:57] LABS: HEMATOCRIT 38.1 % (36-48); MEAN CORPUSCULAR HEMOGLOBIN 29.2 pg (27.0-33.0); MEAN CORPUSCULAR HGB CONC 32.5 g/dL (32.0-36.0); MEAN CORPUSCULAR VOLUME 89.6 fL (79-99); RED BLOOD CELL COUNT(AUTO) 4.25 MIL/uL (4.00-5.50); RED CELL DISTRIBUTION WIDTH 13.4 % (11.0-15.5); WHITE BLOOD COUNT (AUTO) 8.8 K/uL (4.8-10.8)
[2024-02-21 07:07] LABS: CREATININE 0.7 mg/dL (0.5-1.0); POTASSIUM 3.7 mmol/L (3.5-5.1)
[2024-02-21 07:55] VITALS: BP 134/84; PULSE 88; RESP 20; TEMP 98.2
[2024-02-21] MEDS ORDERED: LEVO750T68 PO (08:45)
--- NOTE | 2024-02-21 09:05 | NUR ---
pt says that IV is starting to hurt, IV site is a a little red, IV discontinued. Pt is requesting me to call the doctor for PO antibiotics. Notified , he said to document that pt refuses, he will see pt later. Addendum: 02/21/24 at 1249 by PETER HERNADEZ RN Amended: Links added.
--- NOTE | 2024-02-21 10:54 | DS ---
Discharge Summary Hospital Course Summary: 38 year old female with past medical history of morbid obesity ,Asthma and chronic bronchitis who presents to the eD for complaints of right lower breast tenderness and swelling last Saturday 3 days ago.Patient states that this is the 5th time it happened to her on same site.Patient states the previous 4 episodes of right breast cellulitis she had it popped and was draining and resolved and this is the 5th episode now and so far she said it has not popped and drained yet so she decided to come to the ED to have it drained surgically. In the ED, patient was noted to be awake,alert and coherent appears uncomfortable complaining of right breast pain 8/10 pain level.Patient denies fever ,chills and chest pain. Latest vital signs temperature 99.5, heart rate 108, BP 162/114 saturation 96% on room air. Labs: WBC 15.4 with negative left shift of neutrophils 80.9, hemoglobin 14.4 ,hematocrit 43.3, platelet count 303. Chloride 99, Glucose 195, the rest of the chemistry result is normal. Ultrasound of the right breast was done result is still pending at this time. While in the ER patient was started on cefepime per ER and patient developed rash and itching ,med was stopped and patient was given Benadryl 50 IV x1 vancomycin IV was started in the ER. Patient denies facial swelling respiratory symptoms & tongue swelling . We will admit patient for further medical management. Patient was admitted and her IV antibiotic was switched to vancomycin and Levaquin. Patient also was evaluated by general surgeon Dr. Whelan for which patient was brought in to the OR right away for I and D of the abscess. Cultures came back positive with Enterococcus faecalis, patient was getting wound care with nursing. Patient is being managed by general surgeon regarding wound care, packing with iodoform daily. Due to social determinants, patient unable to have home health due to her insurance but a plan is for her to have her assist with wound care and also hospital is trying to get soumya from [facility] wound care center. Once this is arranged, patient can be discharged home, IV antibiotics per Infectious Disease. Patient is stable. Recommended to see her PCP in 2-3 days. Patient to also follow up with general surgeon in one week. Burnisher(s): Dr. Whelan, general surgeon Procedure(s): 02/18/24- incision and drainage of the right breast abscess by Dr. Whelan Assessment/Plan: Discharge Diagnoses: Abscess to the right breast, positive with Enterococcus faecalis, POA Recurrent right breast cellulitis process POA Sirs were organ dysfunction POA Morbid obesity POA Hyperglycemia POA Allergic reaction POA Anxiety Admitting Diagnoses: Recurrent right breast cellulitis process POA- Sirs were organ dysfunction POA Morbid obesity POA Hyperglycemia POA Allergic reaction POA Anxiety Discharge Instructions: Follow up with PCP in 2-3 days Follow-up with Dr. Whelan, general surgeon in one week Patient may follow up with [facility] once approved. Patient will continue with care at home Home Medications: Reported Medications Levofloxacin (Levaquin 750Mg Tabs) 750 Mg Tablet, 500 MG PO DAILY, TAB 02/21/24 Time spent arranging discharge: 31-60 minutes ATTESTATION BY PHYSICIAN I have seen and examined the patient. I reviewed the documentation, medical decision making, and treatment plan as noted by the mid-level provider above. I agree with the findings and plan of care. EVARISTO BUTLER MD, [facility] Feb 21, 2024 10:54
[2024-02-21 12:00] VITALS: BP 133/92; PULSE 84; RESP 20; TEMP 97.8
[2024-02-21] MEDS ORDERED: ZYVOX 600 MG TAB PO SCH (13:30)
--- NOTE | 2024-02-21 13:43 | PN ---
INFECTIOUS DISEASE PROGRESS NOTE Date of Service: Feb 21, 2024 SUBJECTIVE: This is a 38-year-old female patient who was admitted for right breast abscess. Patient is status post incision and drainage on 02/18/2024. No reports of fever, temperature is 97.9 and a WBC of 8.8. The final wound cultures came back positive for Enterococcus faecalis. We will discontinue Vancomycin and levofloxacin. During rounding patient reported that she has taken amoxicillin before and she did not have a reaction. Due to patient has documented allergies to penicillin will give patient one dose of amoxicillin while in the hospital and observe and if no reaction patient can be discharged on amoxicillin 500 x 10 days. Prescription was written and given to nurse. We will continue to follow patient. PHYSICAL EXAM EYES: Anicteric. Pupils equal and reactive. HENT: No oral thrush seen, moist Oral mucosa NECK: Supple, no JVD or thyromegaly. LUNGS: Good air entry. No rales, no rhonchi. CARDIOVASCULAR: S1, S2 regular. No murmur heard. ABDOMEN: Soft, non tender, bowel sounds present, no organomegaly CENTRAL NERVOUS SYSTEM: Awake, alert, oriented x 3. SKIN: No rashes, no swelling. Right breast abscess, status post I&D. LYMPHATICS: No peripheral lymphadenopathy MUSCULOSKELETAL: No joint swelling, erythema or tenderness. EXTREMITIES: No cyanosis or clubbing. BACK: No deformity, no pressure ulcer. GENITOURINARY: No dysuria or hematuria Vital Sign (Last 12 Hours) 02/21/24 02/21/24 02/21/24 02/21/24 03:40 07:55 07:55 12:00 Temp 97.3 98.2 97.9 Pulse 90 88 84 Resp 20 20 20 B/P (MAP) 140/91 134/84 133/92 Pulse Ox 97 99 97 O2 Delivery Room Air Room Air Room Air* Room Air O2 Flow Rate 0 FiO2 21 Intake & Output (last 24hrs) 02/20/24 02/20/24 02/21/24 15:00 23:00 07:00 Intake Total 1070.0 ml 695.0 ml 590 ml Balance 1070.0 ml 695.0 ml 590 ml LABS: Laboratory: Test 02/21/24 06:45 02/19/24 14:35 Range/Units White Blood Count 8.8 4.8-10.8 K/uL Red Blood Count 4.25 4.00-5.50 MIL/uL Hemoglobin 12.4 12.0-16.0 g/dL Hematocrit 38.1 36-48 % Mean Corpuscular Volume 89.6 79-99 fL Mean Corpuscular Hemoglobin 29.2 27.0-33.0 pg Mean Corpuscular Hemoglobin Concent 32.5 32.0-36.0 g/dL Red Cell Distribution Width 13.4 11.0-15.5 % Platelet Count 233 130-400 K/uL Mean Platelet Volume 9.3 7.5-10.5 fL Nucleated Red Blood Cells 0.0 0.0-0.19 % Sodium Level 143 136-145 mmol/L Potassium Level 3.7 3.5-5.1 mmol/L Chloride Level 107 101-111 mmol/L Carbon Dioxide Level 27 21-32 mmol/L Blood Urea Nitrogen 8 7-18 mg/dL Creatinine 0.7 0.5-1.0 mg/dL Glomerular Filtration Rate Calc 112 >90 mL/min Random Glucose 216 H 70-105 mg/dL Total Calcium 8.7 8.5-10.1 mg/dL Magnesium Level 1.90 1.80-2.40 mg/dL Vancomycin Level Trough 6.6 L 10.0-20.0 UG/ML ASSESSMENT: Right breast abscess, status post incision and drainage on 02/18/2024. Enterococcus faecalis infection. Leukocytosis resolving. Morbid obesity. PLAN: Start patient on amoxicillin while in the hospital and observe. If no reaction patient can be discharged on amoxicillin x 10 days, prescription was written and given to nurse. This case was reviewed and discussed with my supervising physician and the above assessment and plan was formulated and agreed upon. ATTESTATION BY PHYSICIAN I have seen and examined the patient. I reviewed the documentation, medical deci mariam making, and treatment plan as noted by the mid-level provider above. I agree with the findings and plan of care. YANETH HOOKER MD, MIRTA L [facility] Feb 21, 2024 13:43
[2024-02-21] MEDS: MAGNESIUM 2GM PREMIX 50ML 50 ML IV PRN (14:19)
--- NOTE | 2024-02-21 14:40 | NUR ---
pt seen by Dr. Zhao, pt for discharge today, will prescribe PO antibiotics. All questions answered by . Addendum: 02/21/24 at 1623 by PETER HERNADEZ RN Amended: Links added.
[2024-02-21] MEDS: AMOXICILLIN 500 MG CAPSULE PO SCH (15:08)
--- NOTE | 2024-02-21 15:20 | NUR ---
pt seen by Harshal GLASER, informed pt that Dr. Whelan should be coming later. all questions answered by ALFREDITO Addendum: 02/21/24 at 1624 by PETER HERNADEZ RN Amended: Links added.
[2024-02-21 15:30] VITALS: BP 143/94; PULSE 85; RESP 20; TEMP 97.9
--- NOTE | 2024-02-21 16:05 | NUR ---
pt seen by Dr. Whelan, removed packing, assessed incision. Pt will be discharge today, no need for packing, will just put ABD pads over incision, follow up at the clinic in 2 weeks.All questions answered by . Addendum: 02/21/24 at 1626 by PETER HERNADEZ RN Amended: Links added.
--- NOTE | 2024-02-21 16:55 | NUR ---
discharge instructions given, pls refer to [facility]. informed of the follow up appointment, prescription given. informed to call the doctor for further concerns. pt voiced understanding to all things discussed. Addendum: 02/21/24 at 1704 by PETER HERNADEZ RN Amended: Links added.
--- NOTE | 2024-02-21 18:21 | NUR ---
CM NOTE Patient was pending surgeon to round earlier in the day when f/u room visit was done. CM f/u with primary nurse and reported that surgeon was discharging and did not recommend any wound care to be done. CM had made several attempts to find in network home health. [facility], [facility], [facility], [facility], [facility], [facility] all did not except traditional medicaid. [facility] accepts it but did not have staffing to admit patient. [facility] willing to follow patient but recommended patient follow up at the clinic prior to initiating services. No orders for home health were ever received. Patient was discharged home. Addendum: 02/21/24 at 1825 by ITZEL CORONEL CM Amended: Links added.
== END 2024-02-21 16:50 | disposition home or self-care (01) | DRG 385 ==
LOC: EDH 23:15 → EEVIPCON 23:16 → EDHIP 23:16 → WSH 02-18 12:25
PROVIDERS: ADMIT Internal Medicine; ATTEND Internal Medicine
PROC: 0H9T0ZZ Drainage of Right Breast, Open Approach (ICD-10-PCS; principal; 2024-02-18 10:30)
DX: N61.1 Abscess of the breast and nipple (principal); R65.10 Systemic inflammatory response syndrome (SIRS) of non-infectious origin without acute organ dysfunction; E66.01 Morbid (severe) obesity due to excess calories; J44.89 Other specified chronic obstructive pulmonary disease; F41.9 Anxiety disorder, unspecified; Z88.0 Allergy status to penicillin; Z68.42 Body mass index [BMI] 45.0-49.9, adult; Z79.899 Other long term (current) drug therapy
CPT/HCPCS: 36415; 71250; 76642; 80048; 80053; 80202; 83036; 83605; 83735; 84703; 85025; 85027; 85610; 85651; 85730; 87040; 87070; 87076; 87086; 87186; 87205; 94640; 96375; 99285; A4450; G0378; J0692; J1200; J1885; J1956; J2175; J2250; J2405; J2543; J2704; J2710; J2919; J3010; J3370; J3475; J3490; J7030; A4216; A4222; A4223